=== PATIENT | female | born 1940 | race Caucasian/White ===

== ENCOUNTER → 2017-04-05 | Outpatient (CLI) | payer MEDICARE, OTHER ==
[2017-04-05 12:27] LABS: Bilirubin, Delta 0.1 mg/dL (0.0-0.2); Total Bilirubin 0.6 mg/dL (0.2-1.3); Total Protein 7.3 g/dL (6.3-8.2)
== END | disposition home or self-care (01) ==
LOC: LABWHC1 11:34
DX: K76.0 Fatty (change of) liver, not elsewhere classified (principal)
CPT/HCPCS: 36415; 80076; 82105

== ENCOUNTER 2018-01-06 09:01 | Day surgery (SDC) | payer MEDICARE, OTHER ==
[2018-01-01 15:28] VITALS: BMI 37.8
[~2018-01-06 09:01] MED LIST: LACTATED RINGERS 1,000 ML IV SCH; LIDOCAINE 1% 20 ML VIAL (10MG/ML) FOR IV START INTRADERMA PRN
[2018-01-06 10:11] VITALS: RESP 18; TEMP 97
[2018-01-06 10:16] LABS: Glucose,Whole Blood 125 mg/dL (75-99)
[2018-01-06] MEDS ORDERED: PROPOFOL 10 MG/ML 20 ML VIAL IV ONE (10:32)
[2018-01-06] MEDS ORDERED: MIDAZOLAM 2 MG/2 ML VIAL ONE (10:32)
--- NOTE | 2018-01-06 11:15 | P.PCN ---
Date of Procedure: 01/06/18 Procedure(s) Performed: Procedure: Esophagogastroduodenoscopy and biopsy. Preoperative diagnosis: Iron deficiency anemia. Postoperative diagnosis: 1. Small sliding hiatal hernia with no obvious esophagitis or complicated reflux disease. 2. Mild gastritis and duodenitis. 3. Multiple biopsies obtained from the duodenum, antrum and esophagus. 4. Diverticulosis of the colon with no evidence of acute diverticulitis, strictures , polyps or cancer. Preparation HalfLytely prep. Sedation was provided by anesthesia. Brief clinical history: The patient is a 77-year-old female who is scheduled for this evaluation for screening because of iron deficiency anemia to rule out GI sources of bleeding. The patient has no significant GI symptoms or overt bleeding. Procedure: With the patient on her left lateral decubitus position and after informed consent and adequate sedation, I passed the Olympus-GIF 160 video upper endoscope through the cricopharyngeus down the esophagus. GE junction was around 35 cm from the incisors and there was a small sliding hiatal hernia but no obvious esophagitis or complicated reflux disease. The endoscope was then passed into the stomach which was insufflated with air and inspected in detail including the retroflex view in the cardia. There was some mottling and erythema in the antrum but no ulcers or erosions. Pyloric channel did not show any ulcers. Duodenal bulb, post bulbar area and descending duodenum showed some mottling, erythema and friability but no ulcers, erosions or bleeding. I obtained biopsies from the duodenum, antrum and esophagus then the endoscope was withdrawn and I then proceeded with the colonoscopy. Perianal area did not show any fissures or fistulas. There were no masses felt on digital rectal examination. The Olympus CFQ 160L video colonoscope was then inserted in the rectum in the usual fashion and advanced to the cecum. There was diffuse diverticulosis with multiple diverticular orifices noted along the length of the bowel wall but otherwise, the mucosa appeared healthy. No polyps or tumors were seen or any angiodysplasia or other potential sources of bleeding. I retroflexed the endoscope in the rectum before the endoscope was withdrawn. The patient tolerated the procedure well. Plan: The patient was reassured. She will follow-up with you as planned. Consideration can be given for performing a capsule endoscopy if she continues to manifest iron deficiency anemia and a source of GI bleeding remains suspected.
[2018-01-06 11:57] VITALS: BP 127/61; PULSE 62
[2018-01-06 12:15] LABS: Glucose,Whole Blood 101 mg/dL (75-99)
== END 2018-01-06 12:15 | disposition home or self-care (01) ==
LOC: ORWHC2ENDO 09:01
DX: K29.50 Unspecified chronic gastritis without bleeding (principal); K20.0 Eosinophilic esophagitis; K21.0 Gastro-esophageal reflux disease with esophagitis; K29.80 Duodenitis without bleeding; K44.9 Diaphragmatic hernia without obstruction or gangrene; K57.30 Diverticulosis of large intestine without perforation or abscess without bleeding; D50.9 Iron deficiency anemia, unspecified; I10 Essential (primary) hypertension; E78.5 Hyperlipidemia, unspecified; E07.9 Disorder of thyroid, unspecified; E11.9 Type 2 diabetes mellitus without complications; J45.909 Unspecified asthma, uncomplicated; Z85.850 Personal history of malignant neoplasm of thyroid; Z79.84 Long term (current) use of oral hypoglycemic drugs; Z79.82 Long term (current) use of aspirin; Z79.890 Hormone replacement therapy; Z79.899 Other long term (current) drug therapy; Z88.8 Allergy status to other drugs, medicaments and biological substances
CPT/HCPCS: 88305; 45378; 43239; J2250; J2704

== ENCOUNTER 2018-04-13 08:23 | Emergency (ER) | payer MEDICARE, OTHER ==
[2018-04-13 08:31] VITALS: RESP 16
[2018-04-13] MEDS ORDERED: KETOROLAC 60 MG/2 ML VIAL IM STA (09:15)
[2018-04-13] MEDS ORDERED: ONDANSETRON 4 MG ODT STARTER PACK 2 TAB BTL PO STA (09:15)
[2018-04-13] MEDS ORDERED: ORPHENADRINE 30 MG/ML 2 ML VIAL IM STA (09:15)
[2018-04-13] MEDS ORDERED: MAG HYDROX/AL HYDROX/SIMETH 30 ML, HYOSCYAMINE ELIXIR 10 ML, CIMETIDINE HCL 300 MG, LID... PO STA ×4 (09:17)
[2018-04-13] MEDS ORDERED: MORPHINE SULFATE 4 MG/ML SYRINGE IM STA (09:19)
--- NOTE | 2018-04-13 09:20 | ED ---
Back Pain HPI - General Source: patient, RN notes reviewed, old records reviewed Limitations: no limitations <Twyla White - Last Filed: 04/13/18 10:19> <Andrew Duran - Last Filed: 04/13/18 10:46> - General Chief Complaint: Back Pain/Injury Stated Complaint: SCIATICA PAIN Time Seen by Provider: 04/13/18 08:36 - History of Present Illness Initial Comments: 77-year-old female presents return should she went of lower back pain, complains of sciatica. Patient reports that she was treated by her PCP with pain medication. She states that after taking pain medications or started to vomit. Patient relates that she was seen by urgent care. She states at that time they switch her tramadol. She did one day tramadol tolerated medication well but then started to vomit again. Patient reports left-sided today she's had episodes of dry heaving. She denies any abdominal pain. She denies any urinary symptoms or changes in her stool. Patient believes that the medication is causing her to be nauseated and vomit. Patient states that she was given a shot of steroids and muscle relaxers at the urgent care did have some relief as well. Patient poor she does have an MRI scheduled on April 25. Patient is planning on having physical therapy completed of her sciatic nerve as well. Patient ports that he meets on both legs. She denies any saddle anesthesia. ( Twyla White) - Related Data Home Medications Medication Instructions Recorded Confirmed Aspirin 81 mg PO DAILY 01/01/18 01/01/18 Atorvastatin [Lipitor] 10 mg PO HS 01/01/18 01/01/18 Calcium Carbonate [Calcium] 600 mg PO DAILY 01/01/18 01/01/18 Cholecalciferol [Vitamin D3] 1,000 unit PO DAILY 01/01/18 01/01/18 Levothyroxine Sodium [Synthroid] 75 mcg PO DAILY 01/01/18 01/01/18 Losartan Potassium [Cozaar] 50 mg PO HS 01/01/18 01/01/18 Potassium 99 mg PO DAILY 01/01/18 01/01/18 Ranitidine HCl [Zantac] 150 mg PO BID 01/01/18 01/01/18 amLODIPine [Norvasc] 5 mg PO DAILY 01/01/18 01/01/18 metFORMIN HCL [Glucophage] 1,000 mg PO QAM 01/01/18 01/01/18 metFORMIN HCL [Glucophage] 500 mg PO HS 01/01/18 01/01/18 Previous Rx's Medication Instructions Recorded Cyclobenzaprine [Flexeril] 10 mg PO TID #20 tab 04/13/18 Ondansetron Odt [Zofran Odt] 4 mg PO Q8HR PRN #12 tab 04/13/18 Allergies Allergy/AdvReac Type Severity Reaction Status Date / Time steroids AdvReac Nausea & Uncoded 04/13/18 08:31 Vomiting Review of Systems ROS Other: All systems not noted in ROS Statement are negative. <Twyla White - Last Filed: 04/13/18 10:19> ROS Other: All systems not noted in ROS Statement are negative. <Andrew Duran - Last Filed: 04/13/18 10:46> ROS Statement: Those systems with pertinent positive or pertinent negative responses have been documented in the HPI. Past Medical History Past Medical History: Asthma, Cancer, Diabetes Mellitus, GERD/Reflux, Hyperlipidemia, Hypertension, Thyroid Disorder Additional Past Medical History / Comment(s): iron deficient anemia, thyroid cancer 2007 History of Any Multi-Drug Resistant Organisms: None Reported Past Surgical History: Adenoidectomy, Hysterectomy, Orthopedic Surgery, Tonsillectomy Additional Past Surgical History / Comment(s): thyroidectomy, arthroscopy knee Past Anesthesia/Blood Transfusion Reactions: No Reported Reaction Smoking Status: Former smoker Past Alcohol Use History: None Reported Past Drug Use History: None Reported - Past Family History Brother(s) Family Medical History: Cancer Mother Family Medical History: Cancer Father Family Medical History: Cancer <Twyla White - Last Filed: 04/13/18 10:19> General Exam Limitations: no limitations General appearance: alert, in no apparent distress Head exam: Present: atraumatic, normocephalic, normal inspection Eye exam: Present: normal appearance, PERRL, EOMI. Absent: scleral icterus, conjunctival injection, periorbital swelling ENT exam: Present: normal exam, mucous membranes moist Neck exam: Present: normal inspection. Absent: tenderness, meningismus, lymphadenopathy Respiratory exam: Present: normal lung sounds bilaterally. Absent: respiratory distress, wheezes, rales, rhonchi, stridor Cardiovascular Exam: Present: regular rate, normal rhythm, normal heart sounds. Absent: systolic murmur, diastolic murmur, rubs, gallop, clicks GI/Abdominal exam: Present: soft, normal bowel sounds. Absent: distended, tenderness, guarding, rebound, rigid Back exam: Present: other (sciatic notch tenderness) Neurological exam: Present: alert, oriented X3, CN II-XII intact Psychiatric exam: Present: normal affect, normal mood Skin exam: Present: warm, dry, intact, normal color. Absent: rash <Twyla White - Last Filed: 04/13/18 10:19> <Andrew Duran - Last Filed: 04/13/18 10:46> - General Exam Comments Initial Comments: 77-year-old female. Alert and oriented. No significant distress. (Twyla White) Course <Twyla White - Last Filed: 04/13/18 10:19> <Andrew Duran - Last Filed: 04/13/18 10:46> Vital Signs 04/13/18 08:29 Temperature 97.4 F L Pulse Rate 75 Respiratory 16 Rate Blood Pressure 138/72 O2 Sat by Pulse 96 Oximetry - Reevaluation(s) Reevaluation #1: 04/13/18 10:46 PA supervision: I personally saw and examined the patient. I reviewed and agree with the PA findings including all diagnostic interpretations and treatment plans is written unless otherwise stated. The patient does demonstrate evidence of sciatica. She does have an appointment for an MRI soon scheduled through her doctor and possibly physical therapy afterwards. (Andrew Duran) Medical Decision Making - Radiology Data Radiology results: report reviewed <Twyla White - Last Filed: 04/13/18 10:19> <Andrew Duran - Last Filed: 04/13/18 10:46> - Medical Decision Making Patient is a 77-year-old female presents emergency department today with chief complaint of lower back pain and sciatica pain. She reports she was seen by PCP and was prescribed pain medication which then caused her to vomit. Patient states that she then started care was prescribed tramadol. She took tramadol 1 day without any symptoms. She reports that she had some pain in her back today and did have some episodes of vomiting last night into today. Patient was given by mouth Zofran, IM Toradol and Norflex and morphine. She does have improvement of her symptoms. X-rays reviewed and negative for any acute process at this time. (Twyla White) - Radiology Data No acute osseous lesion, mild degerative changes. (Twyla White) Disposition Is patient prescribed a controlled substance at d/c from ED?: No Time of Disposition: 10:20 <Twyla White - Last Filed: 04/13/18 10:19> <Andrew Duran - Last Filed: 04/13/18 10:46> Clinical Impression: Low back pain with sciatica, Nausea Disposition: HOME SELF-CARE Condition: Good Instructions: Sciatica (ED), Chronic Back Pain (ED) Additional Instructions: Patient advised to follow up with primary care physician. Return to the emergency department if any alarming signs or symptoms occur. Prescriptions: Cyclobenzaprine [Flexeril] 10 mg PO TID #20 tab Ondansetron Odt [Zofran Odt] 4 mg PO Q8HR PRN #12 tab PRN Reason: Nausea Referrals: Kleber Munoz DO [Primary Care Provider] - 1-2 days
--- NOTE | 2018-04-13 09:59 | XR ---
EXAMINATION TYPE: XR lumbar spine 2 or 3V , 3 VIEWS DATE OF EXAM ORDERED: 04/13/2018 HISTORY: Pain. COMPARISON: None. FINDINGS: There is a mild levoscoliosis present. Vertebral body height and alignment are maintained. There is no spondylolysis or spondylolisthesis. N o fractures are identified. There is mild hypertrophic spondylosis at T11-12 and L3-4. The pedicles a re intact. There is mild facet arthropathy in the lower lumbar facets. There is calcification of the [place] aorta. IMPRESSION: 1. NO ACUTE OSSEOUS LESION. 2. MILD DEGENERATIVE CHANGE.
[2018-04-13 10:55] VITALS: BP 136/66; PULSE 61; TEMP 97.8
== END 2018-04-13 10:53 | disposition home or self-care (01) ==
LOC: EC 08:23
DX: M54.40 Lumbago with sciatica, unspecified side (principal); R11.2 Nausea with vomiting, unspecified; E78.5 Hyperlipidemia, unspecified; I10 Essential (primary) hypertension; E11.9 Type 2 diabetes mellitus without complications; K21.9 Gastro-esophageal reflux disease without esophagitis; E89.0 Postprocedural hypothyroidism; Z87.891 Personal history of nicotine dependence; Z88.8 Allergy status to other drugs, medicaments and biological substances; Z79.82 Long term (current) use of aspirin; Z79.84 Long term (current) use of oral hypoglycemic drugs; Z79.899 Other long term (current) drug therapy; Z85.850 Personal history of malignant neoplasm of thyroid
CPT/HCPCS: 72100; 99284; 96372 ×3; J2270; J2360; J1885; S0119

== ENCOUNTER → 2018-04-25 | Outpatient (CLI) | payer MEDICARE, OTHER ==
--- NOTE | 2018-04-25 07:49 | MR ---
EXAMINATION TYPE: MR lumbar spine wo con DATE OF EXAM: 04/25/2018 COMPARISON: Lumbar spine x-ray April 13, 2018 HISTORY: Lumbar region radiculopathy per order. Sciatica pain for 4 to 5 months into right leg per pa tient. TECHNIQUE: Multiplanar, multisequence imaging of the lumbar spine is performed without IV contrast. FINDINGS: Sagittal images of the lumbar spine show vertebral body heights and alignment to appear sat isfactory. Multilevel disc desiccation is seen but disc space heights are fairly well-maintained. Sma ll posterior disc herniation is seen on sagittal images the T12-L1 disc space extending inferiorly. The conus medullaris is normal in position and signal ending inferior L1 level. There is large round area of low T1 and T2 signal involving the posterior aspect of the L5 vertebra with extension into th e right pedicle corresponding to prominent sclerotic area on plain films. Axial images at T12-L1 level shows right paracentral disc extrusion effacing anterior thecal sac ext ending 7 mm below disc space sagittal image 7. Bilateral neural foramina are patent. Axial images at L1-L2, L2-L3, and L3-L4 levels show mild to moderate facet degenerative changes with ligamentum flavum hypertrophy, there is some effacement the posterior lateral thecal sac at L2-L3 and L3-L4 levels. Bilateral neural foramina are patent. No suspicious disc herniations are seen. Axial images at the L4-L5 level show moderate to advanced facet degenerative changes and ligament fla vum hypertrophy effacing posterior lateral thecal sac. Bilateral neural foramina are patent. Axial images at the L5-S1 level show moderate to advanced facet degenerative changes bilaterally. Spi nal canal is preserved. Bilateral neural foramina are patent. There appears to be diminished T1 and T2 signal involving the left iliac bone at level of sacroiliac joint on the lowest axial images. IMPRESSION: Multilevel degenerative changes in the lumbar spine as detailed above, most prominent dis c herniation is T12-L1 level. Multilevel facet arthropathy most prominent in the lower lumbar spine. Nonspecific sclerotic lesion L5 vertebra and left iliac bone. Presence of low T1 and T2 signal is aga inst hemangioma. Presence of low T2 signal is against metastatic disease. Etiology uncertain, conside r Paget's disease and metabolic disorders. Other etiologies not excluded. Consider whole body bone sc an to further evaluate this area and for possible additional osseous areas.
== END | disposition home or self-care (01) ==
LOC: RADMRIMAIN 06:59
PROVIDERS: ATTEND Family Medicine
DX: M51.25 Other intervertebral disc displacement, thoracolumbar region (principal); M47.816 Spondylosis without myelopathy or radiculopathy, lumbar region; M46.96 Unspecified inflammatory spondylopathy, lumbar region
CPT/HCPCS: 72148

== ENCOUNTER → 2018-05-15 | Outpatient (CLI) | payer MEDICARE, OTHER ==
--- NOTE | 2018-05-15 14:58 | NM ---
EXAMINATION TYPE: NM bone scan whole body DATE OF EXAM: 05/15/2018 COMPARISON: Lumbar spine MRI dated 04/25/2018 HISTORY: Abnormal MRI, back pain Delayed whole-body scanning was performed following the injection of 24.9 mCi Tc 99m MDP. Images acq uired 3 hours post injection. FINDINGS: There are multiple areas of abnormal uptake within the skeleton to include the bilateral shoulders, t horacic and lumbar spine, left ilium, left and right proximal femurs, anterior iliac bones bilaterall y, left knee and leg. Focus of abnormal uptake present at what may be the posterior aspect of the pro ximal cervical spine. Abnormal rib uptake noted at the lower ribs on the right, likely 11th and 10th ribs. IMPRESSION: Findings suggest metastatic disease.
== END ==
LOC: RADNMMAIN 10:49
PROVIDERS: ATTEND Physical Medicine & Rehabilitation
DX: M54.5 Low back pain (principal)
CPT/HCPCS: 78306; A9503

== ENCOUNTER → 2018-05-21 | Outpatient (CLI) | payer MEDICARE, OTHER ==
--- NOTE | 2018-05-21 14:53 | CT ---
EXAMINATION TYPE: CT ChestAbdPelvis w con DATE OF EXAM: 05/21/2018 COMPARISON: Bone scan May 15, 2018 HISTORY: Disseminated malignant neoplasm per order. History of thyroid and bone cancer per patient. B ack and leg pain. CT DLP: 1632.8 mGycm. Automated Exposure Control for Dose Reduction was Utilized. CONTRAST: CT scan of the thorax, abdomen and pelvis is performed with IV Contrast, patient injected with 100 mL of Isovue 300. FINDINGS: LUNGS: There is suspicious left hilar masslike consolidation that is heterogeneously hyperdense filli ng and occluding the left lower lung bronchus and narrowing significant portion of lingular bronchus extending inferiorly to left hemidiaphragm, there is small adjacent left pleural fluid collection. Th ere is left-sided volume loss with mediastinal shift. Bilateral upper lung show mild to moderate santi pheral reticulation and fibrosis. Right lung is otherwise clear. There is left-sided volume loss with mediastinal shift MEDIASTINUM: There is enlarged heterogeneous hypodense subcarinal lymph node measuring 2.9 x 2.2 cm a xial image 28. No cardiomegaly or pericardial effusion is seen. Coronary artery calcification is p resent which is noted marker for coronary artery disease. OTHER: There is round 6 mm fat dense lesion near confluence of right-sided draining veins at level of proximal clavicle axial image 9 of uncertain etiology or significance. LIVER/GB: Gallbladder has distended margins. There is mild central and left-sided intrahepatic and ex trahepatic biliary dilatation without obstructing mass or calculus identified. There is suspicious il l-defined heterogeneous hypodense 3.1 cm right hepatic liver lesion axial image 64. Liver is overall heterogeneous without definitive additional lesion seen. PANCREAS: No significant abnormality is seen. SPLEEN: There is nonspecific 9 mm heterogeneous hypodense lesion in spleen on axial image 46. ADRENALS: No significant abnormality is seen. KIDNEYS: There are suspected to adjacent simple cyst laterally mid to lower pole level left kidney se rangel 7 image 36. There is more nonspecific hyperdense exophytic 1.4 cm lesion laterally lower pole le [place] right kidney axial image 38 in which solid lesion or neoplasm cannot be excluded.. BOWEL: Oral contrast extends to level of splenic flexure. There is no suspicious small or large bowel dilatation. Small hiatal hernia is present. Scattered colonic diverticula are seen. There is no conv incing evidence for acute diverticulitis. Slightly redundant sigmoid colon is noted. GENITAL ORGANS: Some scattered pelvic phleboliths are present. LYMPH NODES: No greater than 1cm abdominal or pelvic lymph nodes are appreciated. OSSEOUS STRUCTURES: Osseous metastatic disease is redemonstrated with prominent sclerotic focus right L5 level for reference coronal image 63, left inferior L3 level coronal image 63 sclerotic lesion le ft iliac bone coronal image 73. Smaller sclerotic focus right iliac bone coronal image 71. Large scle rotic focus left femoral neck coronal image 56. Smaller sclerotic focus right proximal femur intertro chanteric level laterally coronal image 56. Additional scattered sclerotic foci throughout the spine including dense sclerosis of the T5 vertebra for reference coronal image 80. OTHER: There is ventral wall narrowing the hernia containing fat overlying pelvis coronal image 21. IMPRESSION: Osseous metastatic disease redemonstrated which correlates with bone scan. Suspicious le ft hilar masslike consolidation occluding left lower lobe bronchus with left-sided volume loss. Abnor mal subcarinal lymph node. Suspicious hepatic metastatic lesion. Nonspecific splenic lesion. If tissu e diagnosis is necessary consider bronchoscopy for sampling or CT-guided liver biopsy of the inferior right hepatic lobe lesion. Nonspecific exophytic right renal lesion also noted.
== END | disposition home or self-care (01) ==
LOC: RADCTMAIN 11:41
PROVIDERS: ATTEND Internal Medicine Hematology & Oncology
DX: C79.51 Secondary malignant neoplasm of bone (principal); D73.89 Other diseases of spleen; N28.9 Disorder of kidney and ureter, unspecified; C80.0 Disseminated malignant neoplasm, unspecified
CPT/HCPCS: 82565; 84520; 71260; 74177; 36415; Q9967

== ENCOUNTER → 2018-05-24 | Outpatient (CLI) | payer MEDICARE, OTHER ==
--- NOTE | 2018-05-28 09:40 | PE ---
EXAMINATION TYPE: PET CT fusion skull to thigh DATE OF EXAM: 05/24/2018 CLINICAL HISTORY: History of thyroid cancer with solitary pulmonary nodule left lower lobe. TECHNIQUE: Following the intravenous administration of 13.54 mCi of F-18 FDG, whole body images are performed from the skull base to the midthigh. Images are reviewed on the computer in the coronal, axial, and sagittal planes. Reconstructed rotating images are created on independent workstation and reviewed on the computer. A non-contrast CT is performed in conjunction with the PET scan. COMPARISON: CT chest abdomen and pelvis May 21, 2018.. FINDINGS: SKULL BASE AND NECK: No suspicious hypermetabolic uptake is present. CHEST, MEDIASTINUM, AND HILAR REGION: There is background fairly moderate emphysematous change most p rominent in the upper lungs and apices. There is medial left infrahilar masslike consolidation occlud ing left lower lobe bronchus with extension all the way to hemidiaphragm. More central aspect near br onchial occlusion shows hypermetabolic uptake round shape measuring roughly 3.0 to 3.5 cm in diameter . Findings likely reflect obstructing endobronchial neoplasm with peripheral obstructing atelectasis making accurate measurement difficult. Max SUV near axial image 88 is 10.72. Left-sided volume loss i s noted with mediastinal shift. There is enlarged hypermetabolic subcarinal lymph node measuring 2.6 x 2.1 cm axial image 83 with max SUV of 9.23. I do suspect some hypermetabolic borderline 1 cm left hilar lymph nodes near axial imag e 81. No additional suspicious uptake in the mediastinum or right lung is present. ABDOMEN AND PELVIS: There is less well visualized 2.5 cm vague hypodense right hepatic lesion axial i mage 138, max SUV is 5.57. Metastatic disease is suspected. No suspicious hypermetabolic uptake is identified in spleen to correspond to subcentimeter hypodense lesion. No adrenal masses are evident. No suspicious hypermetabolic uptake is otherwise seen. Normal excretio n is noted. OSSEOUS STRUCTURES: Diffuse osseous metastatic disease is felt present as there is large sclerotic le alina left femoral neck with hypermetabolic uptake max SUV is 6.95. Additional large lesion left iliac bone near sacroiliac joint is noted for reference. There are several hypermetabolic sclerotic verteb ral lesions throughout the thoracolumbar spine, best visualized is diffusely involving T5 vertebra ax ial image 73. Max SUV is 4.69 at this level. There is round hypermetabolic lesion with sclerotic bord er left humeral head axial image 54. OTHER CT: Thyroid gland is not visualized and may be surgically absent or medically ablated. Correlat e clinically. There is moderate to severe coronary artery calcification which is noted marker for coronary artery d isease. Gallbladder has distended margins and is mildly dilated. No surrounding inflammatory change or fluid is noted. Common bile duct is prominent or mildly enlarged dom hepatis. No obstructing or intralumi nal calculi are clearly seen. Need to further investigate by ERCP should be based on clinical and lab correlation. A few simple appearing cysts scattered throughout left kidney are redemonstrated. Nonspecific slightl y hyperdense 1.5 cm exophytic lesion lower pole level right kidney axial image 142 is redemonstrated. Some contrast from recent CT remains within the colon. Scattered colonic diverticula are redemonstrat ed. Uterus is surgically absent or markedly atrophic. There is moderate to severe calcified plaque of the small caliber infrarenal abdominal aorta redemons trated. In the pelvis there is marked thinning or bulging of the intraperitoneal fat. Below this there is dagmar row neck hernia seen best near axial image 192 containing fat redemonstrated. There is multilevel spurring in the thoracolumbar spine. There is prominent facet arthropathy in the lower lumbar spine. IMPRESSION: Suspect occluding endobronchial neoplasm left hilar region occluding left lower lobe bron chus. Suspect left hilar and subcarinal adenopathy. Diffuse osseous metastatic disease redemonstrated . Probable hepatic metastatic lesion noted. Nonspecific right renal lesion redemonstrated. Bronchosco py with sampling can be performed for tissue confirmation.
== END | disposition home or self-care (01) ==
LOC: RADPETMAIN 11:59
PROVIDERS: ATTEND Internal Medicine Hematology & Oncology
DX: C79.51 Secondary malignant neoplasm of bone (principal); N28.9 Disorder of kidney and ureter, unspecified; R91.1 Solitary pulmonary nodule
CPT/HCPCS: 78815; A9552

== ENCOUNTER 2018-05-26 10:51 | Day surgery (SDC) | payer MEDICARE, OTHER ==
[2018-05-23 13:09] VITALS: BMI 35.2
[~2018-05-26 10:51] MED LIST changes: +ALBUTEROL NEB (CONC) 2.5 MG/0.5 ML INHALATION ONE; +DEXAMETHASONE SOD PHOSPHATE 10 MG/ML 1 ML VIAL IV ONE; +LACTATED RINGERS 1,000 ML IV ONE; +LIDOCAINE 2% (PF) 20 MG/ML 2 ML AMP INHALATION ONE; +LIDOCAINE VISCOUS 300 MG/15 ML CUP MUCOUS MEM ONE; +MIDAZOLAM 2 MG/2 ML VIAL IV PRN; +ONDANSETRON 4 MG/2 ML VIAL IVP ONE; +fentaNYL (PF) 50 MCG/ML 2 ML AMP IV PRN
[2018-05-26 11:20] VITALS: TEMP 97.4
[2018-05-26] MEDS ORDERED: LIDOCAINE 2% (PF) 20 MG/ML 10 ML AMP INHALATION ONE (11:30)
[2018-05-26 11:38] LABS: Glucose,Whole Blood 114 mg/dL (75-99)
[2018-05-26] MEDS ORDERED: ONDANSETRON 4 MG/2 ML VIAL IVP ONE (11:45)
[2018-05-26] MEDS ORDERED: KETAMINE 10 MG/ML 20 ML VIAL ONE (12:09)
[2018-05-26] MEDS ORDERED: PROPOFOL 10 MG/ML 20 ML VIAL IV ONE (12:09)
[2018-05-26] MEDS ORDERED: MIDAZOLAM 2 MG/2 ML VIAL ONE (12:09)
[2018-05-26] MEDS ORDERED: GLYCOPYRROLATE 0.2 MG/ML 2 ML VIAL ONE (12:09)
[2018-05-26] MEDS ORDERED: LIDOCAINE 2% INJ 20 MG/ML INTRATRACH ONE (12:18)
[2018-05-26] MEDS ORDERED: EPINEPHrine 10 ML SYRINGE (0.1 MG/ML) MISCELLANE ONE (12:20)
--- NOTE | 2018-05-26 12:42 | P.PCN ---
Date of Procedure: 05/26/18 Preoperative Diagnosis: Left lower lobe atelectasis Postoperative Diagnosis: 1. Left lower lobe bronchus obstruction, endobronchial and extrinsic compression 2. Anatomic distortion of the secondary charu the left upper and left lower lobe 3. 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 The patient was brought into the endoscopy suite and a consent was obtained. The procedure explained to her again at length. After achieving adequate sedation, the flexible bronchoscope was inserted through the right nostril was advanced Doppler airway. Examination of the posterior oropharynx, larynx, epiglottis and vocal cord was all within normal limits. A total of 2 mL of 1% lidocaine was applied to the vocal cords and following that the bronchoscope was advanced into the upper trachea. Examination of the trachea was completely within normal limits. Charu was sharp in the midline. Examination of the right side included the right mainstem bronchus, right upper lobe bronchus, bronchus intermedius, right middle lobe and right lower lobe bronchus, all of these it was repeated and within normal limits. The bronchoscope was then moved to the left. Left mainstem bronchus was patent. Immediately the secondary charu the left upper lobe bronchus and the left lower lobe bronchus was identified. This charu was anatomically distorted, irregular, friable with obvious vascular structures infiltrating the mucosal surface. The left lower lobe bronchus was completely obstructed. There was some minimal amount of bloody secretions covering the orifice of the left lower lobe bronchus that was extrinsically compressed and there was probably some endobronchial tumor within the airway. Unable to pass the bronchoscope into the left lower lobe. The bronchoscope was then moved to the left upper lobe and endobronchial tumor was visualized invading the proximal segment of the left upper lobe. At this point a total of 2 mL of epinephrine 1 1000 was applied to the area involving the abnormal findings in the left lung. Following that, a forceps was utilized to do several endobronchial biopsies. This was difficult to obtain knowing that the patient had some endobronchial bleeding at the site of the biopsies and this was attributed to the vascular nature of the endobronchial tumor. The bloody secretions were suctioned out. Endobronchial washings of the left lower lobe was done with a total of 80 mL of fluid was infused and around 10-15 mL of bloody aspirate was obtained. Following that, the bronchial brushings of the secondary charu left lower lobe and the left upper lobe was done using an endobronchial brush. At the end of the procedure, all of the bloody secretions were suctioned out and the patient remained hemodynamically stable maintaining her pulse ox above 90% throughout the procedure. Therapeutic airway suctioning was done a bronchus was removed and the patient was chest to recovery in stable condition. The patient will be monitored in recovery for another 1-2 hours and the patient will be discharged home once cleared by anesthesia. Expect coughing some bloody secretions related to the procedure.
[2018-05-26] MEDS ORDERED: fentaNYL (PF) 50 MCG/ML 2 ML AMP IV ONE (13:18)
[2018-05-26 13:36] VITALS: BP 131/82; PULSE 71; RESP 18
== END 2018-05-26 14:15 | disposition home or self-care (01) ==
LOC: ORWHC2ENDO 10:51
PROVIDERS: ATTEND Internal Medicine Critical Care Medicine
DX: C34.32 Malignant neoplasm of lower lobe, left bronchus or lung (principal); J98.09 Other diseases of bronchus, not elsewhere classified; E78.00 Pure hypercholesterolemia, unspecified; I10 Essential (primary) hypertension; E11.9 Type 2 diabetes mellitus without complications; Z79.84 Long term (current) use of oral hypoglycemic drugs; E78.5 Hyperlipidemia, unspecified; Z87.891 Personal history of nicotine dependence; Z85.850 Personal history of malignant neoplasm of thyroid; Z79.890 Hormone replacement therapy; Z79.891 Long term (current) use of opiate analgesic; Z79.899 Other long term (current) drug therapy
CPT/HCPCS: 94640; 88104; 88108; 88305; 88342; 88341; 31625; 31623; J2001 ×2; J2250; J2405; J0171; J3010; J2704; 31624

== ENCOUNTER 2018-06-27 08:05 | Day surgery (SDC) | payer MEDICARE, OTHER ==
[2018-06-25 08:49] VITALS: BMI 33.7
[~2018-06-27 08:05] MED LIST changes: -ALBUTEROL NEB (CONC) 2.5 MG/0.5 ML INHALATION ONE; -LACTATED RINGERS 1,000 ML IV ONE; -LIDOCAINE 2% (PF) 20 MG/ML 2 ML AMP INHALATION ONE; -LIDOCAINE VISCOUS 300 MG/15 ML CUP MUCOUS MEM ONE; +MIDAZOLAM (PF) 2 MG/2 ML VIAL IV PRN; -MIDAZOLAM 2 MG/2 ML VIAL IV PRN; +Pre Op ABX Message 1 EACH MISC MISCELLANE ONE
[2018-06-27 08:59] LABS: Glucose,Whole Blood 116 mg/dL (75-99)
[2018-06-27 09:00] VITALS: RESP 16
--- NOTE | 2018-06-27 09:20 | P.GSHP ---
History of Present Illness H&P Date: 06/27/18 Chief Complaint: Lung cancer Patient here today for Port-A-Cath placement. Patient with recent diagnosis of lung cancer. Port being utilized on Saturday. Poor IV access. Past Medical History Past Medical History: Asthma, Cancer, Diabetes Mellitus, GERD/Reflux, Hyperlipidemia, Hypertension, Skin Disorder, Thyroid Disorder Additional Past Medical History / Comment(s): IRON DEFICIENCY ANEMIA (HX OF IRON TRANSFUSION), HX OF BLEEDING ULER (30 YRS AGO)., HX OF FATTY LIVER.THYROID CANCER 2000 WITH SURGERY & IODINE., bone and lung cancer., STATES BACK PAIN AND PAIN IN HER LEGS., YEAST INFECTION UNDER BREAST. currently radiation for cancer left femur and vertebra History of Any Multi-Drug Resistant Organisms: None Reported Past Surgical History: Adenoidectomy, Section, Hysterectomy, Orthopedic Surgery, Tonsillectomy Additional Past Surgical History / Comment(s): thyroidectomy, arthroscopy left knee, colonoscopy, egd. Past Anesthesia/Blood Transfusion Reactions: Motion Sickness Smoking Status: Former smoker - Past Family History Brother(s) Family Medical History: Cancer Additional Family Medical History / Comment(s): multiple myeloma Mother Family Medical History: Cancer Additional Family Medical History / Comment(s): malignant brain tumor Father Family Medical History: Cancer Additional Family Medical History / Comment(s): lung cancer Medications and Allergies Home Medications Medication Instructions Recorded Confirmed Type Atorvastatin [Lipitor] 10 mg PO HS 01/01/18 06/27/18 History Levothyroxine Sodium [Synthroid] 75 mcg PO DAILY 01/01/18 06/27/18 History Losartan Potassium [Cozaar] 50 mg PO DAILY 01/01/18 06/27/18 History amLODIPine [Norvasc] 5 mg PO DAILY 01/01/18 06/27/18 History metFORMIN HCL [Glucophage] 1,000 mg PO AC-BRKFST 01/01/18 06/27/18 History metFORMIN HCL [Glucophage] 500 mg PO AC-SUPPER 01/01/18 06/27/18 History Albuterol Inhaler [Ventolin Hfa 1 - 2 puff INHALATION Q6HR PRN 05/23/18 History Inhaler] DULoxetine HCL [Cymbalta] 30 mg PO DAILY 06/11/18 06/27/18 History Dronabinol 5 mg PO DAILY 06/11/18 06/25/18 History HYDROcodone/APAP 5-325MG [[place] 1 tab PO Q6HR PRN 06/11/18 06/27/18 History 5-325] Ondansetron [Zofran ODT] 4 mg PO Q8H PRN 06/11/18 06/27/18 History traMADol HCL [Ultram] 50 mg PO Q6HR PRN 06/11/18 06/27/18 History Baclofen [Lioresal] 5 mg PO TID #60 tab 06/13/18 06/27/18 Rx Metoclopramide [Reglan] 5 mg PO AC-TID PRN #30 tab 06/13/18 06/27/18 Rx Naproxen [Naprosyn] 250 mg PO TID #60 tab 06/13/18 06/27/18 Rx Ranitidine HCl [Zantac] 150 mg PO BID #60 tablet 06/13/18 06/27/18 Rx Folic Acid 0.4 mg PO DAILY 06/25/18 06/27/18 History Scopolamine 1.5MG/72Hr Patch 1 patch TRANSDERM Q72H 06/27/18 06/27/18 History [TransDerm Scop] Allergies Allergy/AdvReac Type Severity Reaction Status Date / Time opioids Allergy Nausea, Uncoded 06/27/18 08:20 shaky steroids AdvReac Nausea & Uncoded 06/27/18 08:20 Vomiting Surgical - Exam Vital Signs Temp Pulse Resp BP Pulse Ox 97.7 F 87 16 136/61 95 06/27/18 08:32 06/27/18 08:32 06/27/18 08:32 06/27/18 08:32 06/27/18 08:32 Physical exam: General: Well-developed, well-nourished HEENT: Normocephalic, sclerae nonicteric Abdomen: Nontender, nondistended Extremities: No edema Neuro: Alert and oriented Results - Labs Abnormal Lab Results - Last 24 Hours (Table) 06/27/18 Range/Units 08:56 POC Glucose (mg/dL) 116 H (75-99) mg/dL Assessment and Plan (1) Adenocarcinoma of lung, stage 4 Narrative/Plan: Will proceed with Port-A-Cath placement at this time Risks of bleeding, infection, DVT, pneumothorax, catheter malfunction, anesthesia related complications were discussed. The patient understands and wishes to proceed. Current Visit: No Status: Acute Code(s): C34.90 - MALIGNANT NEOPLASM OF UNSP PART OF UNSP BRONCHUS OR LUNG SNOMED Code(s): 647184531
[2018-06-27] MEDS ORDERED: fentaNYL (PF) 50 MCG/ML 2 ML AMP ONE (09:40)
[2018-06-27] MEDS ORDERED: MIDAZOLAM 2 MG/2 ML VIAL ONE (09:40)
[2018-06-27] MEDS ORDERED: PROPOFOL 10 MG/ML 20 ML VIAL IV ONE (09:40)
[2018-06-27] MEDS ORDERED: KETAMINE 10 MG/ML 20 ML VIAL ONE (09:40)
[2018-06-27] MEDS ORDERED: LIDOCAINE (PF) 10 MG/ML 2 ML VIAL SQ ONE ×2 (09:44→10:04)
[2018-06-27] MEDS ORDERED: SODIUM CHLORIDE 0.9% 50 ML with ceFAZolin 2,000 MG IV ONE ×2 (10:00)
[2018-06-27] MEDS ORDERED: HEPARIN SODIUM,PORCINE 100 UNIT/ML 5 ML VIAL IV ONE ×2 (10:10)
[2018-06-27 10:44] VITALS: TEMP 97.8
--- NOTE | 2018-06-27 10:55 | FL ---
Fluoroscopy HISTORY: Port-A-Cath placement 38 seconds fluoroscopy time supplied to the referring clinician. 1 intraoperative C-arm images docum ent the procedure. See dictated report from general surgery.
[2018-06-27] MEDS ORDERED: traMADol 50 MG TAB PO PRN (10:56)
[2018-06-27] MEDS ORDERED: ONDANSETRON 4 MG/2 ML VIAL IVP PRN (10:56)
[2018-06-27] MEDS ORDERED: NALOXONE 0.4 MG/ML 1 ML VIAL IV PRN (10:56)
--- NOTE | 2018-06-27 10:58 | P.OP ---
Date of Procedure: 06/27/18 Procedure(s) Performed: PREOPERATIVE DIAGNOSIS: Lung cancer POSTOPERATIVE DIAGNOSIS: Same PROCEDURE: Port-A-Cath placement SURGEON: Mirela EBL: Minimal ANESTHESIA: Sedation COMPLICATIONS: None OPERATIVE PROCEDURE: Patient was brought and placed on the operative table in the supine position. The patient was sedated per anesthesia that time. The chest and neck were prepped and draped in usual sterile fashion. The ultrasound probe was used to identify the location of the right internal jugular vein. The skin was localized with lidocaine. The Seldinger needle was advanced into the IJ under ultrasound guidance. The wire was advanced through the needle under fluoroscopic guidance into the superior vena cava. A port pocket was created in the right infraclavicular location. The catheter was tunneled from the wire entrance site to the port pocket. The port was then connected to the catheter. The dilator introducer was threaded over the guidewire. The guidewire and dilator were then removed. The catheter was advanced through the introducer and introducer was then removed. The tip was seen to be in the right atrial junction. Port was flushed with both saline and a Hep-Lock solution. There was good flow both in and out of the port. The port was sutured in underlying tissues using 3-0 silk sutures. The subcutaneous tissues were reapproximated using 3-0 Vicryl sutures and the skin at both locations using 4-0 Monocryl sutures. Skin glue and sterile dressings then applied. DISPOSITION: Stable to recovery room
--- NOTE | 2018-06-27 11:40 | XR ---
EXAMINATION TYPE: XR chest 1V confirm line [facility] DATE OF EXAM: 06/27/2018 COMPARISON: Prior chest x-rays not available, comparison to prior PET/CT 05/24/2018 HISTORY: Status post Port-A-Cath placement TECHNIQUE: Single frontal view of the chest is obtained. FINDINGS: Right-sided Port-A-Cath is present, there is a right jugular approach, distal tip the cath eter is at the level of the cavoatrial junction. No evident pneumothorax or right pleural effusion. T here is retrocardiac density present which obscures the left hemidiaphragm. IMPRESSION: No evident complication status post central venous catheter placement..
[2018-06-27 11:43] VITALS: BP 139/81; PULSE 78
[2018-06-27 11:49] LABS: Glucose,Whole Blood 125 mg/dL (75-99)
== END 2018-06-27 12:02 | disposition home or self-care (01) ==
LOC: OR 08:05
PROVIDERS: ATTEND Surgery
DX: C34.32 Malignant neoplasm of lower lobe, left bronchus or lung (principal); C79.51 Secondary malignant neoplasm of bone; C78.7 Secondary malignant neoplasm of liver and intrahepatic bile duct; D72.829 Elevated white blood cell count, unspecified; E11.9 Type 2 diabetes mellitus without complications; E89.0 Postprocedural hypothyroidism; E78.5 Hyperlipidemia, unspecified; J45.909 Unspecified asthma, uncomplicated; I10 Essential (primary) hypertension; K21.9 Gastro-esophageal reflux disease without esophagitis; D50.9 Iron deficiency anemia, unspecified; F41.9 Anxiety disorder, unspecified; Z79.84 Long term (current) use of oral hypoglycemic drugs; Z79.890 Hormone replacement therapy; Z79.1 Long term (current) use of non-steroidal anti-inflammatories (NSAID); Z79.899 Other long term (current) drug therapy; Z92.3 Personal history of irradiation; Z85.850 Personal history of malignant neoplasm of thyroid; Z87.891 Personal history of nicotine dependence; Z90.710 Acquired absence of both cervix and uterus; Z88.5 Allergy status to narcotic agent; Z88.8 Allergy status to other drugs, medicaments and biological substances
CPT/HCPCS: 36561; 77001; C1788; J2250; J2001; J1642; J1100; J2405; J0690; J3010; J2704

== ENCOUNTER 2018-07-07 10:50 | Inpatient (IN) | payer MEDICARE, OTHER ==
[2018-07-07] MEDS ORDERED: ONDANSETRON 4 MG/2 ML VIAL IVP STA (11:05)
[2018-07-07] MEDS ORDERED: SODIUM CHLORIDE 0.9% 1,000 ML IV STA (11:05)
--- NOTE | 2018-07-07 11:33 | ED ---
General Adult HPI - General Chief complaint: Nausea/Vomiting/Diarrhea Stated complaint: Vomiting-Ca Pt Source: patient Mode of arrival: ambulatory Limitations: no limitations - History of Present Illness Initial comments: Dictation was produced using [employer] dictation software. please excuse any grammatical, word or spelling errors. Chief Complaint: 77-year-old female with past medical history of lung cancer, diabetes, dyslipidemia, thyroid disease presents with nausea. History of Present Illness: This 77-year-old female presents with 7 day history of nausea and vomiting. Patient just started chemotherapy 7 days ago. Since her oncologist is Dr. Justice. Patient just had her first chemotherapy infusion 7 days ago. Patient states that since infusion she's been having severe nausea and vomiting. Patient decided come in today because her symptoms have been slightly worsening. Patient unable to tolerate any by mouth. Patient denies any pain complaints. Denies any fever, chills or night sweats. The ROS documented in this emergency department record has been reviewed and confirmed by me. Those systems with pertinent positive or negative responses have been documented in the HPI. All other systems are other negative and/or noncontributory. - Related Data Home Medications Medication Instructions Recorded Confirmed Atorvastatin [Lipitor] 10 mg PO HS 01/01/18 07/07/18 Levothyroxine Sodium [Synthroid] 75 mcg PO DAILY 01/01/18 07/07/18 Losartan Potassium [Cozaar] 50 mg PO DAILY 01/01/18 07/07/18 amLODIPine [Norvasc] 5 mg PO DAILY 01/01/18 07/07/18 metFORMIN HCL [Glucophage] 1,000 mg PO AC-BRKFST 01/01/18 07/07/18 metFORMIN HCL [Glucophage] 500 mg PO AC-SUPPER 01/01/18 07/07/18 Albuterol Inhaler [Ventolin Hfa 1 - 2 puff INHALATION Q6HR PRN 05/23/18 07/07/18 Inhaler] DULoxetine HCL [Cymbalta] 30 mg PO DAILY 06/11/18 07/07/18 Dronabinol 5 mg PO DAILY 06/11/18 07/07/18 HYDROcodone/APAP 5-325MG [[place] 1 tab PO Q6HR PRN 06/11/18 07/07/18 5-325] Ondansetron [Zofran ODT] 4 mg PO Q8H PRN 06/11/18 07/07/18 traMADol HCL [Ultram] 50 mg PO Q6HR PRN 06/11/18 07/07/18 Scopolamine 1.5MG/72Hr Patch 1 patch TRANSDERM Q72H 06/27/18 07/07/18 [TransDerm Scop] Acetaminophen/Diphenhydramine 2 tab PO HS 07/07/18 07/07/18 [Tylenol PM 500-25mg] Folic Acid 0.4 mg PO DAILY 07/07/18 07/07/18 Previous Rx's Medication Instructions Recorded Baclofen [Lioresal] 5 mg PO TID #60 tab 06/13/18 Metoclopramide [Reglan] 5 mg PO AC-TID PRN #30 tab 06/13/18 Naproxen [Naprosyn] 250 mg PO TID #60 tab 06/13/18 Ranitidine HCl [Zantac] 150 mg PO BID #60 tablet 06/13/18 Allergies Allergy/AdvReac Type Severity Reaction Status Date / Time opioids Allergy Nausea, Uncoded 07/07/18 11:03 shaky steroids AdvReac Nausea & Uncoded 07/07/18 11:03 Vomiting Review of Systems ROS Statement: Those systems with pertinent positive or pertinent negative responses have been documented in the HPI. ROS Other: All systems not noted in ROS Statement are negative. Past Medical History Past Medical History: Asthma, Cancer, Diabetes Mellitus, GERD/Reflux, Hyperlipidemia, Hypertension, Skin Disorder, Thyroid Disorder Additional Past Medical History / Comment(s): IRON DEFICIENCY ANEMIA (HX OF IRON TRANSFUSION), HX OF BLEEDING ULER (30 YRS AGO)., HX OF FATTY LIVER.THYROID CANCER 2000 WITH SURGERY & IODINE., bone and lung cancer., STATES BACK PAIN AND PAIN IN HER LEGS., YEAST INFECTION UNDER BREAST. currently radiation for cancer left femur and vertebra History of Any Multi-Drug Resistant Organisms: None Reported Past Surgical History: Adenoidectomy, Section, Hysterectomy, Orthopedic Surgery, Tonsillectomy Additional Past Surgical History / Comment(s): thyroidectomy, arthroscopy left knee, colonoscopy, egd. Past Anesthesia/Blood Transfusion Reactions: Motion Sickness Past Psychological History: Anxiety Smoking Status: Former smoker Past Alcohol Use History: None Reported Past Drug Use History: None Reported - Past Family History Brother(s) Family Medical History: Cancer Additional Family Medical History / Comment(s): multiple myeloma Mother Family Medical History: Cancer Additional Family Medical History / Comment(s): malignant brain tumor Father Family Medical History: Cancer Additional Family Medical History / Comment(s): lung cancer General Exam - General Exam Comments Initial Comments: PHYSICAL EXAM: General Impression: Alert and oriented x3, not in acute distress HEENT: Normocephalic atraumatic, extra-ocular movements intact, pupils equal and reactive to light bilaterally, dry mucous membranes Cardiovascular: Heart regular rate and rhythm, S1&S2 audible, no murmurs, rubs or gallops Chest: Lungs clear to auscultation bilaterally, no rhonchi, no wheeze, no rales , Mediport in the right chest wall region Abdomen: Bowel sounds present, abdomen soft, non-tender, non-distended, no organomegaly Musculoskeletal: Pulses present and equal in all extremities, no peripheral edema Motor: Power 5/5 bilaterally, no focal deficits noted Neurological: CN II-XII grossly intact, no focal motor or sensory deficits noted Skin: Intact with no visualized rashes Psych: Normal affect and mood Limitations: no limitations Course Vital Signs 07/07/18 11:01 Temperature 97.4 F L Pulse Rate 94 Respiratory 20 Rate Blood Pressure 92/56 O2 Sat by Pulse 95 Oximetry Medical Decision Making - Medical Decision Making ED course: Serial female presents with chief complaint of nausea and vomiting 7 days status post initial chemotherapy infusion. Vital signs upon arrival shows blood pressure 92/56. Rest of vital signs within acceptable limits. Patient appears dehydrated. Clinical presentation is consistent with her chemotherapy induced nausea and vomiting. EKGs benign.Laboratory evaluation obtained. Leukopenia of 0.2, hemoglobin 9.1, platelets of 82, sodium of 122, gap acidosis, normal lactic acid level. Calcium of 5.3, magnesium 1.1. With hypoalbuminemia. Patient does have a calcium of 5.3 which is critical low however when corrected for albumin patient has calcium of 6.3. Pending ionized calcium level. Patient is afebrile. She does appear to be neutropenic. No antibiotics indicated at this time. This is likely all secondary to chemotherapy. Patient given intravenous fluids, electrolyte replacement intravenously and anti-nausea medication. Patient to be admitted with oncology consultation. EKG Interpretation: A 12 lead EKG was obtained. It was interpreted by myself and attending physician. There is a P wave before every QRS complex. Rate is 94. Rhythm is sinus rhythm, ND interval 132, QRS 88, QTc 460. QT is not prolonged. No ST segment depression or elevation. There appears to be various P wave morphology shows intermittent ectopic rhythm - Lab Data Result diagrams: 07/07/18 11:37 07/07/18 11:37 Lab Results 07/07/18 07/07/18 07/07/18 Range/Units 11:37 11:37 11:37 WBC 0.2 L* (3.8-10.6) k/uL RBC 3.08 L (3.80-5.40) m/uL Hgb 9.1 L D (11.4-16.0) gm/dL Hct 25.7 L (34.0-46.0) % MCV 83.5 (80.0-100.0) fL MCH 29.5 (25.0-35.0) pg MCHC 35.4 (31.0-37.0) g/dL RDW 14.8 (11.5-15.5) % Plt Count 82 L D (150-450) k/uL Differential Comment Manual Slide Review Performed Poikilocytosis (manual Present Sodium 122 L (137-145) mmol/L Potassium 4.0 (3.5-5.1) mmol/L Chloride 87 L (98-107) mmol/L Carbon Dioxide 19 L (22-30) mmol/L Anion Gap 16 mmol/L BUN 19 H (7-17) mg/dL Creatinine 0.68 (0.52-1.04) mg/dL Est GFR (CKD-EPI)AfAm >90 (>60 ml/min/1.73 sqM) Est GFR (CKD-EPI)NonAf 85 (>60 ml/min/1.73 sqM) Glucose 101 H (74-99) mg/dL Plasma Lactic Acid Chuck 1.4 (0.7-2.0) mmol/L Calcium 5.3 L* (8.4-10.2) mg/dL Magnesium 1.1 L (1.6-2.3) mg/dL Total Bilirubin 3.8 H (0.2-1.3) mg/dL AST 40 H (14-36) U/L ALT 42 (9-52) U/L Alkaline Phosphatase 352 H (38-126) U/L Creatine Kinase 68 (30-135) U/L Total Protein 4.8 L (6.3-8.2) g/dL Albumin 2.3 L (3.5-5.0) g/dL Disposition Clinical Impression: Electrolyte abnormality, Nausea & vomiting Disposition: ADMITTED IP TO THIS HOSP Condition: Fair Referrals: Kleber Munoz DO [Primary Care Provider] - 1-2 days Decision Time: 13:02
[2018-07-07 12:07] LABS: ALT 42 U/L (9-52); AST 40 U/L (14-36); Albumin 2.3 g/dL (3.5-5.0); Alkaline Phosphatase 352 U/L (38-126); Anion Gap 16 mmol/L; Blood Urea Nitrogen 19 mg/dL (7-17); Carbon Dioxide 19 mmol/L (22-30); Chloride 87 mmol/L (98-107); Creatine Kinase 68 U/L (30-135); Glucose 101 mg/dL (74-99); Magnesium 1.1 mg/dL (1.6-2.3); Sodium 122 mmol/L (137-145); Total Bilirubin 3.8 mg/dL (0.2-1.3); Total Protein 4.8 g/dL (6.3-8.2)
[2018-07-07 12:13] LABS: HCT 25.7 % (34.0-46.0); MCH 29.5 pg (25.0-35.0); MCHC 35.4 g/dL (31.0-37.0); MCV 83.5 fL (80.0-100.0); Mean Platelet Volume 6.8; RBC 3.08 m/uL (3.80-5.40); RDW 14.8 % (11.5-15.5)
[2018-07-07 12:19] LABS: Calcium 5.3 mg/dL (8.4-10.2)
[2018-07-07 12:22] LABS: HGB 9.1 gm/dL (11.4-16.0); WBC 0.2 k/uL (3.8-10.6)
[2018-07-07 12:23] LABS: Platelet Count 82 k/uL (150-450)
[2018-07-07 12:44] LABS: Poikilocytosis (M) Present
[2018-07-07] MEDS ORDERED: CALCIUM GLUCONATE 1,000 MG in SODIUM CHLORIDE 0.9% 100 ML IVPB ONE ×2 (12:45→12:47)
[2018-07-07] MEDS ORDERED: MORPHINE SULFATE 4 MG/ML SYRINGE IV PRN (13:02)
[2018-07-07] MEDS ORDERED: ACETAMINOPHEN TAB 325 MG TAB PO PRN (13:02)
[2018-07-07] MEDS ORDERED: NALOXONE 0.4 MG/ML 1 ML VIAL IV PRN (13:02)
[2018-07-07] MEDS: ONDANSETRON 4 MG/2 ML VIAL IVP PRN ×2 (13:32→19:15)
[2018-07-07] MEDS: MAGNESIUM SULFATE-D5W PMX 1 GM in DEXTROSE/WATER 1 100ML.BAG IVPB SCH ×2 (15:22→16:47)
[2018-07-07] MEDS: SODIUM CHLORIDE 0.9% 1,000 ML IV SCH (15:23)
[2018-07-07] MEDS ORDERED: traMADol 50 MG TAB PO PRN (15:29)
[2018-07-07 17:06] LABS: Glucose,Whole Blood 110 mg/dL (75-99)
[2018-07-07] MEDS ORDERED: PANTOPRAZOLE 40 MG/10 ML VIAL IVP ONE (19:01)
[2018-07-07 20:15] LABS: Glucose,Whole Blood 109 mg/dL (75-99)
[2018-07-07] MEDS: METOCLOPRAMIDE 5 MG/ML 2 ML VIAL IVP SCH (21:50)
[2018-07-07] MEDS: ALPRAZolam 0.5 MG TAB PO PRN (22:23)
[2018-07-08] MEDS: SODIUM CHLORIDE 0.9% 1,000 ML IV SCH ×4 (00:05→15:14)
[2018-07-08] MEDS ORDERED: CALCIUM CHLORIDE 500 MG in SODIUM CHLORIDE 0.9% 50 ML IVPB ONE (06:00)
[2018-07-08] MEDS: METOCLOPRAMIDE 5 MG/ML 2 ML VIAL IVP SCH ×3 (06:24→20:38)
[2018-07-08 07:06] LABS: HCT 26.7 % (34.0-46.0); MCH 29.2 pg (25.0-35.0); MCHC 33.6 g/dL (31.0-37.0); MCV 86.8 fL (80.0-100.0); Mean Platelet Volume 6.5; RBC 3.07 m/uL (3.80-5.40)
[2018-07-08 07:08] LABS: Glucose,Whole Blood 124 mg/dL (75-99)
[2018-07-08 07:18] LABS: WBC 0.2 k/uL (3.8-10.6)
[2018-07-08 07:22] LABS: Anion Gap 15 mmol/L; Blood Urea Nitrogen 15 mg/dL (7-17); Carbon Dioxide 15 mmol/L (22-30); Chloride 95 mmol/L (98-107); Glucose 111 mg/dL (74-99); Magnesium 1.8 mg/dL (1.6-2.3); Potassium 3.9 mmol/L (3.5-5.1); Sodium 125 mmol/L (137-145)
--- NOTE | 2018-07-08 08:00 | HP ---
HISTORY AND PHYSICAL DATE OF ADMISSION: 07/07/2018 DATE OF SERVICE: 07/07/2018 PRESENTING COMPLAINT: Nausea, vomiting diarrhea. HISTORY OF PRESENTING COMPLAINT: This is a very pleasant 77-year-old patient of Dr. Munoz and oncologist, Dr. 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 Chronic stable medical conditions include diabetes, hyperlipidemia, hypertension, COPD, GERD, hypothyroid, peptic ulcer disease. The patient has stage IV lung cancer with metastatic disease to the left femur and lumbar region. The patient has been getting radiation treatment by Dr. Diego Calix. The patient was here at the end of May with uncontrolled pain and she did better with hydration. The patient got chemotherapy a week ago and since then, having nausea, vomiting, diarrhea, not able to keep anything down, became extremely exhausted, tired, brought by the to the ER. The patient was found to have severe electrolyte abnormality with sodium 122, calcium down to 2.9 ionized and also white count 0.2. There was no fever or chills. The patient is feeling totally rundown. Started on IV fluids. REVIEW OF SYSTEMS: CONSTITUTIONAL: Weak, tired. HEENT: None. RESPIRATORY: Some shortness of breath. CARDIOVASCULAR: None. GASTROINTESTINAL: As above. GENITOURINARY: None. MUSCULOSKELETAL: Pain in the joints. DERMATOLOGICAL: None. HEMATOLOGICAL: None. LYMPHATICS: None. PSYCHIATRY: Feeling a bit low. NEUROLOGICAL: None. PAST HISTORY: Diabetes, hyperlipidemia, hypertension, asthma, GERD, hypothyroid, peptic ulcer disease 30 years ago, fatty liver, iron deficiency anemia, thyroid cancer 2000, metastatic lung cancer. PAST SURGICAL HISTORY: Adenoidectomy, , hysterectomy, tonsillectomy, thyroidectomy, colonoscopy. SOCIAL HISTORY: Smoked a pack a day for 20 years, stopped in 1984. . FAMILY HISTORY: Multiple myeloma. HOME MEDICATIONS: Scopolamine patch 1.5 every 72 hours, Ultram 50 mg q.6h p.r.n., Glucophage 100 mg before supper and 1000 mg before breakfast, Norvasc 5 mg p.o. daily, Zantac 150 mg b.i.d., Zofran 4 mg q.8h p.r.n., naproxen 250 mg p.o. t.i.d., Reglan 5 mg a.c. t.i.d. p.r.n., Cozaar 50 mg p.o. daily, Synthroid 75 mcg a day, [place] 5 one tablet q.6h p.r.n., folic acid 0.4 mg p.o. daily, ( ) 5 mg p.o. daily, Cymbalta 30 mg p.o. daily, Baclofen 5 mg p.o. t.i.d., Lipitor 10 mg q.h.s., Ventolin HFA 1 or 2 puffs q.6 p.r.n., Tylenol p.m. q.h.s. ALLERGIES: To OPIATES AND STEROIDS, no true allergy. PHYSICAL EXAMINATION: VITAL SIGNS ON PRESENTATION: Temperature 97.4 pulse 94, respiration 20, blood pressure 92/56, pulse ox 95%. GENERAL APPEARANCE: Lying in bed, tired, exhausted appearing. EYES: Pupils equal. Conjunctivae pale. HEENT: External appearance of ears and nose is normal. Oral cavity dry. NECK: JVD not raised. Mass not palpable. Respiratory effort normal. LUNGS: Diminished breath sounds. CARDIOVASCULAR: First and second sounds normal. No edema. ABDOMEN: Soft, nontender. Liver and spleen not palpable. LYMPHATICS: No lymph nodes palpable in neck or axillae. PSYCHIATRY: Alert and oriented x3. Mood and affect anxious-appearing. NEUROLOGICAL: Pupils equal. Cranial nerves grossly intact. Power and sensation grossly intact. INVESTIGATIONS: Reviewed in the context of the clinical picture, white count 0.2, hemoglobin 9.1, platelets 82. Sodium 122, potassium 4, BUN 19, creatinine 0.68, plasma lactic acid was 1.4, calcium 5.3. Ionized calcium is 2.9, magnesium 1.1, albumin 2.3. ASSESSMENT: 1. Severe nausea, vomiting and diarrhea as a side effect of chemotherapy. 2. Pancytopenia with severe neutropenia as side effect of chemotherapy. 3. Hyponatremia with hypotension from poor oral intake. 4. Acute metabolic acidosis from volume loss. 5. Hypocalcemia with low ionized calcium. 6. Hypomagnesemia. 7. Hyperbilirubinemia. 8. Hypoalbuminemia as an acute phase reactant. 9. Stage IV lung cancer, metastatic disease to the femur and vertebral masses. 10.Diabetes mellitus type 2 on oral hypoglycemic. 11.Hyperlipidemia. 12.Essential hypertension. 13.Chronic obstructive pulmonary disease in an ex-smoker. 14.Gastroesophageal reflux disease. 15.Hypothyroid. 16.Fatty liver. PLAN: The patient told to avoid water. Will give normal saline. Give some salt tablets. Aggressive hydration. Will also give patient IV calcium supplements. Oncology was consulted for G-CSF administration. The patient currently does not have any infective symptoms. The patient at least needs 2 nights in the hospital as she is rather sick. Care was discussed with the patient's . Questions were answered. MMRONALDOL / CHRISN: [id number] /
[2018-07-08] MEDS: PANTOPRAZOLE 40 MG/10 ML VIAL IV SCH (08:03)
[2018-07-08] MEDS: ALPRAZolam 0.5 MG TAB PO PRN (08:10)
[2018-07-08] MEDS ORDERED: SODIUM CHLORIDE TAB 1 GM TAB PO SCH (09:00)
[2018-07-08 09:47] LABS: Poikilocytosis (M) Present
[2018-07-08 11:12] LABS: Glucose,Whole Blood 121 mg/dL (75-99)
--- NOTE | 2018-07-08 12:26 | P.CRDCN ---
History of Present Illness Consult date: 07/08/18 History of present illness: This is a 77-year-old female with history of hypertension hyperlipidemia COPD, GERD syndrome and also known for peptic ulcer disease. She was diagnosed to have stage IV lung cancer with metastatic disease to the left femur and lumbar region. Patient has been getting radiation treatment and also got chemotherapy about a week ago. Patient is now admitted to the hospital with nausea, vomiting , diarrhea, and also complaints of fatigue, exhaustion and tiredness. Patient was found to have severe Dr. Talley abnormalities. The sodium level of 122, calcium level of 2.9 and leukopenia and also thrombocytopenia. Patient also developed a bout of atrial fibrillation lasting for about 45 minutes with rapid ventricular response. We're asked to see the patient for management of atrial fibrillation. Patient is still unable to keep anything by mouth. Currently patient is in sinus rhythm. Patient was feeling palpitations when she was in atrial fibrillation. Denied any chest pain or undue shortness of breath. Patient is not a candidate for anticoagulation therapy, given her low platelet count. Given her age, sex and history of hypertension, ideally patient needed to be on anti-cognition therapy. At this point I'm going to start her on oral beta oswaldo if she can tolerate. If not, IV Lopressor 5 mg can be used on when necessary basis. If she develops persistent atrial fibrillation, patient may need IV Cardizem. I will also obtain echocardiogram. Review of Systems Not obtained Past Medical History Past Medical History: Asthma, Cancer, Diabetes Mellitus, GERD/Reflux, Hyperlipidemia, Hypertension, Skin Disorder, Thyroid Disorder Additional Past Medical History / Comment(s): LEFT SIDE LUNG ADENOCARCINOMA STAGE IV WITH WIDE SPREAD METASTATIC DISEASE, IRON DEFICIENCY ANEMIA (HX OF IRON TRANSFUSION), HX OF BLEEDING ULER (30 YRS AGO), NIDDM TYPE II, HX OF FATTY LIVER, THYROID CANCER 2000 WITH SURGERY & IODINE, BACK PAIN AND PAIN IN HER LEGS, UTI, YEAST INFECTION UNDER BREAST History of Any Multi-Drug Resistant Organisms: None Reported Past Surgical History: Adenoidectomy, Section, Hysterectomy, Orthopedic Surgery, Tonsillectomy Additional Past Surgical History / Comment(s): 05/26/18 port a cath insertion, thyroidectomy, arthroscopy left knee, colonoscopy, egd. Past Anesthesia/Blood Transfusion Reactions: Motion Sickness Smoking Status: Former smoker - Past Family History Brother(s) Family Medical History: Cancer Additional Family Medical History / Comment(s): multiple myeloma Mother Family Medical History: Cancer Additional Family Medical History / Comment(s): malignant brain tumor Father Family Medical History: Cancer Additional Family Medical History / Comment(s): lung cancer Medications and Allergies Home Medications Medication Instructions Recorded Confirmed Type Atorvastatin [Lipitor] 10 mg PO HS 01/01/18 07/07/18 History Levothyroxine Sodium [Synthroid] 75 mcg PO DAILY 01/01/18 07/07/18 History Losartan Potassium [Cozaar] 50 mg PO DAILY 01/01/18 07/07/18 History amLODIPine [Norvasc] 5 mg PO DAILY 01/01/18 07/07/18 History metFORMIN HCL [Glucophage] 1,000 mg PO AC-BRKFST 01/01/18 07/07/18 History metFORMIN HCL [Glucophage] 500 mg PO AC-SUPPER 01/01/18 07/07/18 History Albuterol Inhaler [Ventolin Hfa 1 - 2 puff INHALATION Q6HR PRN 05/23/18 History Inhaler] DULoxetine HCL [Cymbalta] 30 mg PO DAILY 06/11/18 07/07/18 History Dronabinol 5 mg PO DAILY 06/11/18 07/07/18 History HYDROcodone/APAP 5-325MG [[place] 1 tab PO Q6HR PRN 06/11/18 07/07/18 History 5-325] Ondansetron [Zofran ODT] 4 mg PO Q8H PRN 06/11/18 07/07/18 History traMADol HCL [Ultram] 50 mg PO Q6HR PRN 06/11/18 07/07/18 History Baclofen [Lioresal] 5 mg PO TID #60 tab 06/13/18 07/07/18 Rx Metoclopramide [Reglan] 5 mg PO AC-TID PRN #30 tab 06/13/18 07/07/18 Rx Naproxen [Naprosyn] 250 mg PO TID #60 tab 06/13/18 07/07/18 Rx Ranitidine HCl [Zantac] 150 mg PO BID #60 tablet 06/13/18 07/07/18 Rx Scopolamine 1.5MG/72Hr Patch 1 patch TRANSDERM Q72H 06/27/18 07/07/18 History [TransDerm Scop] Acetaminophen/Diphenhydramine 2 tab PO HS 07/07/18 07/07/18 History [Tylenol PM 500-25mg] Folic Acid 0.4 mg PO DAILY 07/07/18 07/07/18 History Allergies Allergy/AdvReac Type Severity Reaction Status Date / Time opioids Allergy Nausea, Uncoded 07/07/18 11:03 shaky steroids AdvReac Nausea & Uncoded 07/07/18 11:03 Vomiting Physical Exam Vitals: Vital Signs Temp Pulse Pulse Resp BP BP Pulse Ox 07/08/18 08:20 91 16 07/08/18 05:00 97.6 F 91 16 119/93 95 07/08/18 02:20 89 07/08/18 01:57 147 H 07/08/18 01:56 20 94 L 07/08/18 01:53 147 H 20 144/87 91 L 07/07/18 21:00 96.9 F L 90 17 105/58 94 L 07/07/18 16:35 97.8 F 86 18 108/64 94 L 07/07/18 16:11 98.7 F 88 18 119/61 95 07/07/18 16:00 88 20 111/62 92 L 07/07/18 15:30 84 21 113/64 93 L 07/07/18 14:30 20 121/71 93 L 07/07/18 14:00 18 107/61 95 07/07/18 13:30 82 18 110/68 91 L 07/07/18 13:00 88 18 101/58 92 L 07/07/18 12:30 79 18 102/60 95 Intake and Output 07/07/18 07/08/18 07/08/18 22:59 06:59 14:59 Intake Total 150 1125 Balance 150 1125 Intake: Intake, IV Titration 1125 Amount Sodium Chloride 0.9% 1, 1125 000 ml @ 125 mls/hr IV . Q8H [facility] Rx#:[id number] Oral 150 Other: Voiding Method Toilet Toilet Diaper Diaper Incontinent Incontinent # Voids 1 1 GENERAL EXAM: Patient is alert . Appears frail and weak HEENT: Normocephalic. Normal reaction of pupils, equal size, normal range of extraocular motion. No erythema or exudates in the throat. NECK: No masses, no nuchal rigidity. CHEST: No chest wall deformity. LUNGS: Equal air entry with no crackles or wheeze. HEART: S1 and S2 normal ABDOMEN: Soft SKIN: No rashes CENTRAL NERVOUS SYSTEM: No focal deficits. EXTREMITIES: No cyanosis, clubbing or edema. Results 07/08/18 06:30 07/08/18 06:30 Cardiac Enzymes 07/07/18 Range/Units 11:37 AST 40 H (14-36) U/L CBC 07/07/18 07/08/18 Range/Units 11:37 06:30 WBC 0.2 L* 0.2 L* (3.8-10.6) k/uL RBC 3.08 L 3.07 L (3.80-5.40) m/uL Hgb 9.1 L D 9.0 L (11.4-16.0) gm/dL Hct 25.7 L 26.7 L (34.0-46.0) % Plt Count 82 L D 39 L D (150-450) k/uL Comprehensive Metabolic Panel 07/07/18 07/08/18 Range/Units 11:37 06:30 Sodium 122 L 125 L (137-145) mmol/L Potassium 4.0 3.9 (3.5-5.1) mmol/L Chloride 87 L 95 L (98-107) mmol/L Carbon Dioxide 19 L 15 L (22-30) mmol/L BUN 19 H 15 (7-17) mg/dL Creatinine 0.68 0.58 (0.52-1.04) mg/dL Glucose 101 H 111 H (74-99) mg/dL Calcium 5.3 L* 5.0 L* (8.4-10.2) mg/dL AST 40 H (14-36) U/L ALT 42 (9-52) U/L Alkaline Phosphatase 352 H (38-126) U/L Total Protein 4.8 L (6.3-8.2) g/dL Albumin 2.3 L (3.5-5.0) g/dL Current Medications Generic Name Dose Route Start Last Admin Trade Name Freq PRN Reason Stop Dose Admin Acetaminophen 650 mg 07/07/18 13:02 07/07/18 13:37 Tylenol Tab PO 650 mg Q6HR PRN Administration Mild Pain or Fever > 100.5 Alprazolam 0.5 mg 07/07/18 21:22 07/08/18 08:10 Xanax PO 0.5 mg TID PRN Administration Anxiety Sodium Chloride 1,000 mls @ 125 mls/hr 07/07/18 23:45 07/08/18 08:04 Saline 0.9% IV 125 mls/hr .Q8H REZA Administration Metoclopramide HCl 10 mg 07/07/18 21:30 07/08/18 06:24 Reglan IVP 10 mg Q8H REZA Administration Naloxone HCl 0.2 mg 07/07/18 13:02 Narcan IV Q2M PRN Opioid Reversal Pantoprazole Sodium 40 mg 07/08/18 09:00 07/08/18 08:03 Protonix IV 40 mg DAILY REZA Administration Sodium Chloride 2 gm 07/08/18 09:00 07/08/18 08:04 Sodium Chloride Tab PO 2 gm TID REZA Administration Tramadol HCl 50 mg 07/07/18 15:29 07/07/18 16:00 Ultram PO 50 mg QID PRN Administration Moderate Pain Intake and Output 07/07/18 07/08/18 07/08/18 22:59 06:59 14:59 Intake Total 150 1125 Balance 150 1125 Intake: Intake, IV Titration 1125 Amount Sodium Chloride 0.9% 1, 1125 000 ml @ 125 mls/hr IV . Q8H [facility] Rx#:[id number] Oral 150 Other: Voiding Method Toilet Toilet Diaper Diaper Incontinent Incontinent # Voids 1 1 07/08/18 06:30 07/08/18 06:30 EKG Interpretations (text) Sinus rhythm with APCs Assessment and Plan (1) Paroxysmal atrial fibrillation Current Visit: Yes Status: Acute Code(s): I48.0 - PAROXYSMAL ATRIAL FIBRILLATION SNOMED Code(s): 932459814 (2) Electrolyte abnormality Current Visit: Yes Status: Acute Code(s): E87.8 - OTH DISORDERS OF ELECTROLYTE AND FLUID BALANCE, NEC SNOMED Code(s): 649135763 (3) Adenocarcinoma of lung, stage 4 Current Visit: No Status: Acute Code(s): C34.90 - MALIGNANT NEOPLASM OF UNSP PART OF UNSP BRONCHUS OR LUNG SNOMED Code(s): 326016892 (4) Hypertension Current Visit: Yes Status: Acute Code(s): I10 - ESSENTIAL (PRIMARY) HYPERTENSION SNOMED Code(s): 89282375 (5) Diabetes mellitus Current Visit: Yes Status: Acute Code(s): E11.9 - TYPE 2 DIABETES MELLITUS WITHOUT COMPLICATIONS SNOMED Code(s): 90136612 Plan: Patient is back in sinus rhythm. I'll start her small dose of oral beta oswaldo if she can tolerate. If not, Lopressor 5 g IV can be used on when necessary basis for paroxysmal atrial fibrillation. If she has persistent atypical fibrillation, IV Cardizem may be necessary. I will also get an echocardiogram
--- NOTE | 2018-07-08 13:26 | P.CONS ---
History of Present Illness - Reason for Consult Consult date: 07/08/18 Chemotherapy toxicity Requesting physician: Stan Mayo - Chief Complaint Nausea, vomiting, weakness - History of Present Illness Ms. Fraga is a very pleasant 77-year-old female with a history of recently found metastatic lung cancer, adenocarcinoma, with diffuse bone metastases and a single liver lesion as well as left femoral neck metastases, who is here for intractable nausea, vomiting, and generalized weakness and fatigue. She was initially diagnosed in May [address] of the chest abdomen and pelvis revealed left hilar masslike consolidation occluding the left lower lobe bronchus and they 2.9 cm subcarinal hypodense lesion as well as a 3.1 cm ill- defined liver lesion. She was symptomatic at that time with 40% weight loss and increasing shortness of breath which she attributed to anxiety. Bronchoscopy was done with biopsy that was positive for adenocarcinoma and PET scan confirmed diffuse bone metastases, solitary liver lesion, and left femoral neck metastatic site. She subsequently underwent palliative radiation to the femur and lumbar spine and subsequently was started on chemotherapy, receiving cycle 1 on 06/30/18. Unfortunately she has been having nausea with vomiting, and unable to keep anything down, and significant weakness for the past few days. She ended up in the ER where she was found to be hyponatremic, hypomagnesemic, hypocalcemic, and with pancytopenia including a WBC count of 0.2. No fevers. Hemodynamically otherwise stable. She has been placed on fluids with some electrolyte replacement with improvement of her sodium from 122 -125, improvement of magnesium from 1.1-1.8. Her calcium continues to be significantly low at 5.0 from 5.3 on presentation, supplementation has been ordered. Her LFTs on presentation revealed an elevated alk phos in the 300s and a total bilirubin of 3.8 from 1.8 a few weeks ago. Of note, she also developed atrial fibrillation, cardiology consulted. Has a history of smoking 1 PPD X 20 years, quit 1984. No alcohol. Review of Systems All systems: negative Constitutional: Reports as per HPI Past Medical History Past Medical History: Asthma, Cancer, Diabetes Mellitus, GERD/Reflux, Hyperlipidemia, Hypertension, Skin Disorder, Thyroid Disorder Additional Past Medical History / Comment(s): LEFT SIDE LUNG ADENOCARCINOMA STAGE IV WITH WIDE SPREAD METASTATIC DISEASE, IRON DEFICIENCY ANEMIA (HX OF IRON TRANSFUSION), HX OF BLEEDING ULER (30 YRS AGO), NIDDM TYPE II, HX OF FATTY LIVER, THYROID CANCER 2000 WITH SURGERY & IODINE, BACK PAIN AND PAIN IN HER LEGS, UTI, YEAST INFECTION UNDER BREAST History of Any Multi-Drug Resistant Organisms: None Reported Past Surgical History: Adenoidectomy, Section, Hysterectomy, Orthopedic Surgery, Tonsillectomy Additional Past Surgical History / Comment(s): 05/26/18 port a cath insertion, thyroidectomy, arthroscopy left knee, colonoscopy, egd. Past Anesthesia/Blood Transfusion Reactions: Motion Sickness Smoking Status: Former smoker - Past Family History Brother(s) Family Medical History: Cancer Additional Family Medical History / Comment(s): multiple myeloma Mother Family Medical History: Cancer Additional Family Medical History / Comment(s): malignant brain tumor Father Family Medical History: Cancer Additional Family Medical History / Comment(s): lung cancer Medications and Allergies Home Medications Medication Instructions Recorded Confirmed Type Atorvastatin [Lipitor] 10 mg PO HS 01/01/18 07/07/18 History Levothyroxine Sodium [Synthroid] 75 mcg PO DAILY 01/01/18 07/07/18 History Losartan Potassium [Cozaar] 50 mg PO DAILY 01/01/18 07/07/18 History amLODIPine [Norvasc] 5 mg PO DAILY 01/01/18 07/07/18 History metFORMIN HCL [Glucophage] 1,000 mg PO AC-BRKFST 01/01/18 07/07/18 History metFORMIN HCL [Glucophage] 500 mg PO AC-SUPPER 01/01/18 07/07/18 History Albuterol Inhaler [Ventolin Hfa 1 - 2 puff INHALATION Q6HR PRN 05/23/18 History Inhaler] DULoxetine HCL [Cymbalta] 30 mg PO DAILY 06/11/18 07/07/18 History Dronabinol 5 mg PO DAILY 06/11/18 07/07/18 History HYDROcodone/APAP 5-325MG [[place] 1 tab PO Q6HR PRN 06/11/18 07/07/18 History 5-325] Ondansetron [Zofran ODT] 4 mg PO Q8H PRN 06/11/18 07/07/18 History traMADol HCL [Ultram] 50 mg PO Q6HR PRN 06/11/18 07/07/18 History Baclofen [Lioresal] 5 mg PO TID #60 tab 06/13/18 07/07/18 Rx Metoclopramide [Reglan] 5 mg PO AC-TID PRN #30 tab 06/13/18 07/07/18 Rx Naproxen [Naprosyn] 250 mg PO TID #60 tab 06/13/18 07/07/18 Rx Ranitidine HCl [Zantac] 150 mg PO BID #60 tablet 06/13/18 07/07/18 Rx Scopolamine 1.5MG/72Hr Patch 1 patch TRANSDERM Q72H 06/27/18 07/07/18 History [TransDerm Scop] Acetaminophen/Diphenhydramine 2 tab PO HS 07/07/18 07/07/18 History [Tylenol PM 500-25mg] Folic Acid 0.4 mg PO DAILY 07/07/18 07/07/18 History Allergies Allergy/AdvReac Type Severity Reaction Status Date / Time opioids Allergy Nausea, Uncoded 07/07/18 11:03 shaky steroids AdvReac Nausea & Uncoded 07/07/18 11:03 Vomiting Physical Exam Vitals: Vital Signs Temp Pulse Pulse Resp BP BP Pulse Ox 07/08/18 08:20 91 16 07/08/18 05:00 97.6 F 91 16 119/93 95 07/08/18 02:20 89 07/08/18 01:57 147 H 07/08/18 01:56 20 94 L 07/08/18 01:53 147 H 20 144/87 91 L 07/07/18 21:00 96.9 F L 90 17 105/58 94 L 07/07/18 16:35 97.8 F 86 18 108/64 94 L 07/07/18 16:11 98.7 F 88 18 119/61 95 07/07/18 16:00 88 20 111/62 92 L 07/07/18 15:30 84 21 113/64 93 L 07/07/18 14:30 20 121/71 93 L 07/07/18 14:00 18 107/61 95 07/07/18 13:30 82 18 110/68 91 L 07/07/18 13:00 88 18 101/58 92 L 07/07/18 12:30 79 18 102/60 95 Intake and Output 07/07/18 07/08/1807/08/18 22:59 06:59 14:59 Intake Total 150 1125 Balance 150 1125 Intake: Intake, IV Titration 1125 Amount Sodium Chloride 0.9% 1, 1125 000 ml @ 125 mls/hr IV . Q8H [facility] Rx#:[id number] Oral 150 Other: Voiding Method Toilet Toilet Diaper Diaper Incontinent Incontinent # Voids 1 1 General: In no acute distress. Sleeping, arousable. HEENT: Mucosa dry. Neck: Neck supple. Lymph: No cervical/supraclavicular LAD. Lungs: CTA-B without wheezing or rhonchi. Heart: RRR. No LE edema. Abdomen: Soft, nontender, nondistended, with positive bowel sounds. MSK: 4/4 strength in all 4 extremities. Neuro: Alert and oriented 3. No obvious gross neurologic deficits. Skin: No jaundice or rash. Psych: Appropriate affect. Results CBC & Chem 7: 07/08/18 06:30 07/08/18 06:30 Labs: Abnormal Lab Results - Last 24 Hours (Table) 07/07/18 07/07/18 07/07/18 Range/Units 11:37 11:37 13:25 WBC 0.2 L* (3.8-10.6) k/uL RBC 3.08 L (3.80-5.40) m/uL Hgb 9.1 L D (11.4-16.0) gm/dL Hct 25.7 L (34.0-46.0) % Plt Count 82 L D (150-450) k/uL Sodium 122 L (137-145) mmol/L Chloride 87 L (98-107) mmol/L Carbon Dioxide 19 L (22-30) mmol/L BUN 19 H (7-17) mg/dL Glucose 101 H (74-99) mg/dL POC Glucose (mg/dL) (75-99) mg/dL Calcium 5.3 L* (8.4-10.2) mg/dL Ionized Calcium Evans 2.9 L* (4.5-5.3) mg/dL Magnesium 1.1 L (1.6-2.3) mg/dL Total Bilirubin 3.8 H (0.2-1.3) mg/dL AST 40 H (14-36) U/L Alkaline Phosphatase 352 H (38-126) U/L Total Protein 4.8 L (6.3-8.2) g/dL Albumin 2.3 L (3.5-5.0) g/dL 07/07/18 07/07/18 07/08/18 Range/Units 17:04 19:55 06:30 WBC 0.2 L* (3.8-10.6) k/uL RBC 3.07 L (3.80-5.40) m/uL Hgb 9.0 L (11.4-16.0) gm/dL Hct 26.7 L (34.0-46.0) % Plt Count 39 L D (150-450) k/uL Sodium (137-145) mmol/L Chloride (98-107) mmol/L Carbon Dioxide (22-30) mmol/L BUN (7-17) mg/dL Glucose (74-99) mg/dL POC Glucose (mg/dL) 110 H 109 H (75-99) mg/dL Calcium (8.4-10.2) mg/dL Ionized Calcium Evans (4.5-5.3) mg/dL Magnesium (1.6-2.3) mg/dL Total Bilirubin (0.2-1.3) mg/dL AST (14-36) U/L Alkaline Phosphatase (38-126) U/L Total Protein (6.3-8.2) g/dL Albumin (3.5-5.0) g/dL 07/08/18 07/08/18 Range/Units 06:30 07:07 WBC (3.8-10.6) k/uL RBC (3.80-5.40) m/uL Hgb (11.4-16.0) gm/dL Hct (34.0-46.0) % Plt Count (150-450) k/uL Sodium 125 L (137-145) mmol/L Chloride 95 L (98-107) mmol/L Carbon Dioxide 15 L (22-30) mmol/L BUN (7-17) mg/dL Glucose 111 H (74-99) mg/dL POC Glucose (mg/dL) 124 H (75-99) mg/dL Calcium 5.0 L* (8.4-10.2) mg/dL Ionized Calcium Evans (4.5-5.3) mg/dL Magnesium (1.6-2.3) mg/dL Total Bilirubin (0.2-1.3) mg/dL AST (14-36) U/L Alkaline Phosphatase (38-126) U/L Total Protein (6.3-8.2) g/dL Albumin (3.5-5.0) g/dL Assessment and Plan Assessment: 1. Pancytopenia, due to chemotherapy 2. Electrolyte derangement, due to chemotherapy and vomiting 3. Hyperbilirubinemia 4. Atrial fibrillation 5. Intractable nausea and vomiting, due to chemotherapy 6. Generalized weakness 7. Metastatic lung cancer on chemotherapy 8. Diabetes 9. HLP 10. GERD/PUD 11. HTN 12. COPD Plan: Ms. Fraga is a very pleasant 77-year-old female with multiple comorbidities as listed above including metastatic lung cancer, recently diagnosed, status post palliative RT to the femur and L-spine, followed by cycle 1 of carbo Alimta on 06/30/18, here for intractable nausea, vomiting, and generalized weakness. Found to have pancytopenia including severe neutropenia with a WBC of 0.2, afebrile, platelet in the 30s, hemoglobin 9, and electrolyte derangements including sodium of 122, magnesium 1.1, total calcium of 5.3 with ionized calcium 2.9. She has been on hydration and antiemetics with improvement of her sodium to 125 and magnesium to 1.8 however continues to be severely hypocalcemic at 5.0. Total bilirubin also increased at 3.8. Creatinine normal 0.58. Developed paroxysmal atrial fibrillation. She has experienced significant toxicity for her chemotherapy. For now supportive care with fluids, aggressive electrolyte replacement, aggressive antiemetics. Supportive transfusion for Hgb <7.5 or symptomatic anemia, and plt <15 or bleeding. If able to hold off on antioagualtion for now, prefer to hold this until plt >50. She should be at her mulu in terms of pancytopenia. Will give a dose of G-CSF due to her acute illness, although anticipate neutropenia to start to recover soon. Would also repeat LFT's in am and if bilirubin continues to be elevated, would obtain abdominal US. Calcium replacement ordered. Discussed with nursing staff and primary team. Discussed with the patient and family and they are agreeable to the plan. All of her questions were answered.
[2018-07-08] MEDS ORDERED: CALCIUM GLUCONATE 1,000 MG in SODIUM CHLORIDE 0.9% 100 ML IVPB ONE ×2 (14:00→18:00)
[2018-07-08] MEDS ORDERED: SCOPOLAMINE 1.5MG/72HR PATCH TRANSDERM SCH (14:15)
[2018-07-08 14:21] VITALS: BMI 34.2
[2018-07-08 14:25] LABS: Platelet Count 39 k/uL (150-450)
[2018-07-08] MEDS: FILGRASTIM-SNDZ 300 MCG/0.5 ML SYRINGE SQ SCH (15:01)
[2018-07-08 15:25] LABS: HCT 28.8 % (34.0-46.0); HGB 9.5 gm/dL (11.4-16.0); MCH 29.4 pg (25.0-35.0); RBC 3.24 m/uL (3.80-5.40)
[2018-07-08 15:31] LABS: Platelet Count 31 k/uL (150-450); WBC 0.1 k/uL (3.8-10.6)
[2018-07-08 16:01] LABS: ALT 33 U/L (9-52); AST 20 U/L (14-36); Alkaline Phosphatase 239 U/L (38-126); Anion Gap 15 mmol/L; Blood Urea Nitrogen 15 mg/dL (7-17); Carbon Dioxide 15 mmol/L (22-30); Chloride 97 mmol/L (98-107); Glucose 114 mg/dL (74-99); Potassium 3.6 mmol/L (3.5-5.1); Sodium 127 mmol/L (137-145); Total Protein 4.4 g/dL (6.3-8.2)
[2018-07-08 16:16] LABS: Calcium 5.4 mg/dL (8.4-10.2)
[2018-07-08 17:41] LABS: Glucose,Whole Blood 121 mg/dL (75-99)
[2018-07-08 20:17] LABS: Glucose,Whole Blood 115 mg/dL (75-99)
--- NOTE | 2018-07-08 23:30 | PN ---
PROGRESS NOTE DATE OF SERVICE: 07/08/2018 PRESENTING COMPLAINT: Nausea, vomiting diarrhea. INTERVAL HISTORY: This is a patient with stage IV metastatic lung cancer with mets to the left femur and lumbar region. Got chemotherapy a week ago. The patient presented with severe nausea, vomiting, diarrhea, and severe dyselectrolytemia. This morning nausea and vomiting is better, extremely exhausted, tired. Magnesium and calcium are being supplemented. The patient's family at the bedside. The patient on a liquid diet. Diarrhea settled down. REVIEW OF SYSTEMS: Done for constitutional, cardiovascular, GI, pulmonary; relevant findings as above. CURRENT MEDICATIONS: Reviewed that include calcium supplement, Zarxio, Reglan for nausea, Protonix, scopolamine patch for nausea, IV fluids. PHYSICAL EXAMINATION: Temperature 97.6, pulse 91, respirations 16, blood pressure 109/93, pulse ox 95 percent on room air. GENERAL APPEARANCE: Lying in bed, tired-appearing but arousable. EYES: Pupils equal. Conjunctivae pale. NECK: JVD not raised. Mass not palpable. Respiratory effort normal. LUNGS: Decreased breath sounds. CARDIOVASCULAR: First and second sounds. No edema. ABDOMEN: Soft, nontender. Liver and spleen not palpable. LYMPHATICS: No lymph node in neck or axilla. PSYCHIATRY: Tired but able to answer simple questions. INVESTIGATIONS: White count 0.1, hemoglobin 9.5, platelets 31. Sodium 125, potassium 3.9, bicarb 15, calcium 5, magnesium 1.8. ASSESSMENT: 1. Severe nausea, vomiting, diarrhea as a side effect of chemotherapy. 2. Pancytopenia with severe neutropenia as side effect of chemotherapy, started on filgrastim. 3. Hyponatremia and hypotension from poor oral intake. 4. Acute metabolic acidosis from severe volume loss and diarrhea. 5. Severe hypocalcemia with low ionized calcium. 6. Hypomagnesemia, improving. 7. Hyperbilirubinemia. 8. Hypoalbuminemia as an acute phase reactant. 9. Stage IV lung cancer with metastatic disease to the femur with multiple masses. 10.Diabetes mellitus type 2 on oral hypoglycemic. 11.Hyperlipidemia. 12.Essential hypertension. 13.Chronic obstructive pulmonary disease in an ex-smoker. 14.Gastroesophageal reflux disease. 15.Hypothyroid. 16.Fatty liver. PLAN: Discussed with the patient family at the bedside. Also discussed with Dr. Khoulani from Oncology. More Calcium is being given. Magnesium has got better. IV fluids to continue. Patient to remain on a liquid diet and advance as tolerated. Follow electrolytes closely. The patient remains rather sick currently. MMODL / IJN: [id number] /
[2018-07-09] MEDS: ALPRAZolam 0.5 MG TAB PO PRN (00:15)
[2018-07-09] MEDS: SODIUM CHLORIDE 0.9% 1,000 ML IV SCH ×2 (03:26→05:13)
[2018-07-09] MEDS: METOCLOPRAMIDE 5 MG/ML 2 ML VIAL IVP SCH ×3 (05:13→21:16)
[2018-07-09] MEDS ORDERED: ALPRAZolam 0.25 MG TAB PO PRN (08:01)
--- NOTE | 2018-07-09 08:29 | XR ---
EXAMINATION TYPE: XR chest 1V portable DATE OF EXAM: 07/09/2018 CLINICAL HISTORY: Difficulty breathing progress study. TECHNIQUE: Single AP portable upright view of the chest is obtained. COMPARISON: Chest x-ray from [address] chest May 21, 2018. PET/CT May 24, 2018. FINDINGS: There is stable right internal jugular Mediport catheter. There is stable mild cardiomegal y with atherosclerotic thoracic aorta. There is chronic retrocardiac opacity. Right lung is clear. So me new central vascular congestion is present. Osseous structures remain demineralized. IMPRESSION: There is persisting cardiomegaly with left basilar opacity correlating with obstructing m ass or neoplasm and associated basilar atelectasis and/or infiltrate and and probable tiny left pleur al effusion. New mild central vascular congestion is felt present. Correlate for fluid overload state .
--- NOTE | 2018-07-09 08:45 | CT ---
EXAMINATION TYPE: CT brain wo con DATE OF EXAM: 07/09/2018 HISTORY: Increased confusion. Newly diagnosed lung cancer. CT DLP: 1010.3 mGycm. Automated Exposure Control for Dose Reduction was Utilized. TECHNIQUE: CT scan of the head is performed without contrast. COMPARISON: None. FINDINGS: There is no acute intracranial hemorrhage or midline shift identified. There is diffuse v entricular and sulcal prominence consistent with diffuse age-related cerebral atrophy. There is low- attenuation in the deep and periventricular white matter most likely on basis of product of chronic s mall vessel ischemic change in patient this age. The globes are intact and the visualized sinuses ar e clear. IMPRESSION: No acute intracranial hemorrhage or midline shift. There is mild to moderate diffuse ag e-related cerebral atrophy and moderate to severe nonspecific white matter changes most likely on bas is of product of chronic small vessel ischemic change noted.
--- NOTE | 2018-07-09 08:51 | CT ---
EXAMINATION TYPE: CT abdomen pelvis wo con DATE OF EXAM: 07/09/2018 COMPARISON: 05/21/2018 HISTORY: Diarrhea. CT DLP: 1138.4 mGycm Examination of the solid and hollow viscera is limited given the lack of contrast. FINDINGS: LUNG BASES: Again noted is partially imaged left lower lobe collapse with endobronchial lesion or muc ous. LIVER/GB: There is evidence of gallbladder hydrops without calcified cholelithiasis. Gallbladder valentine ures 11.6 cm in length. Ill-defined area of decreased attenuation adjacent to the falciform ligament may reflect underlying lesion. Lack of contrast limits evaluation. Additional area of decreased atten uation anterior segment right hepatic lobe measures 1.3 cm. Additional lesion is difficult to exclude . PANCREAS: No pancreatic mass identified. No inflammatory process seen. SPLEEN: No evidence for splenomegaly. No intrasplenic lesions seen. ADRENALS: No adrenal nodules identified. No evidence for thickening. KIDNEYS: Stable nonspecific renal lesions. No nephrolithiasis. No hydronephrosis. BOWEL: Wall thickening involving the colon extending from the mid transverse colon through the sigmoi d colon compatible with nonspecific colitis. Differential diagnostic possibilities include infectious , inflammatory as well as ischemic causes. There is distention of small bowel with air-fluid levels n oted likely on the basis of ileus. Lymph nodes: No evidence for adenopathy greater than 1 cm. Abdominal aorta: Atheromatous changes seen. No evidence for aneurysm. Genital organs: No significant abnormality. Other: Low anterior abdominal wall fat-containing hernia to the left of midline. IMPRESSION: 1. Nonspecific colitis. 2. Small bowel ileus. 3. Left lower lobe collapse as seen previously. Suspect endobronchial lesion. 4. Nonspecific hepatic areas of decreased attenuation may reflect hepatic lesions. Consider further e valuation with ultrasound.
[2018-07-09 09:33] LABS: Glucose,Whole Blood 101 mg/dL (75-99)
[2018-07-09] MEDS ORDERED: DILTIAZEM DRIP BOLUS FROM BAG 1 MG SOLN IV ONE (09:57)
[2018-07-09 10:15] LABS: ALT 37 U/L (9-52); AST 26 U/L (14-36); Albumin 1.9 g/dL (3.5-5.0); Alkaline Phosphatase 234 U/L (38-126); Anion Gap 14 mmol/L; Blood Urea Nitrogen 21 mg/dL (7-17); Carbon Dioxide 13 mmol/L (22-30); Chloride 103 mmol/L (98-107); Glucose 96 mg/dL (74-99); Potassium 3.6 mmol/L (3.5-5.1); Sodium 130 mmol/L (137-145); Total Bilirubin 2.8 mg/dL (0.2-1.3); Total Protein 4.2 g/dL (6.3-8.2)
[2018-07-09] MEDS: DILTIAZEM 50 MG in SODIUM CHLORIDE 0.9% 40 ML IV SCH ×4 (10:18→22:33)
[2018-07-09 10:24] LABS: Creatine Kinase MB 0.3 ng/mL (0.0-2.4); Troponin I <0.012 ng/mL (0.000-0.034)
[2018-07-09 10:31] LABS: HCT 28.2 % (34.0-46.0); HGB 9.4 gm/dL (11.4-16.0); MCH 29.1 pg (25.0-35.0); MCHC 33.4 g/dL (31.0-37.0); MCV 87.1 fL (80.0-100.0); Mean Platelet Volume 8.9; RBC 3.23 m/uL (3.80-5.40); RDW 15.3 % (11.5-15.5)
[2018-07-09 10:41] LABS: Calcium 5.5 mg/dL (8.4-10.2)
[2018-07-09 10:46] LABS: WBC 0.1 k/uL (3.8-10.6)
[2018-07-09 11:01] LABS: Platelet Count 14 k/uL (150-450)
[2018-07-09] MEDS: DEXTROSE 5%-0.9% NACL 1,000 ML IV SCH ×2 (11:24→21:19)
[2018-07-09 11:45] LABS: Poikilocytosis (M) Present
--- NOTE | 2018-07-09 12:34 | CONS ---
CONSULTATION This is a pulmonary critical care consultation dated 07/09/2018. DATE OF SERVICE: 07/09/2018 This is a 77-year-old female who presented to the emergency department on July 07. The patient apparently came in with nausea, vomiting, and diarrhea. She was seen by Dr. Clayton in the emergency room. She has a history of multiple medical problems, but most notably has a history of metastatic lung cancer. Anyway, this patient apparently has a 7-day history of nausea and vomiting. She started chemo just recently about 7 days prior to admission. Her primary oncologist is Dr. Deonte Miranda. Anyway, the patient had been having apparently severe nausea, vomiting, and diarrhea after the chemo started. Because her symptoms worsened, she came into the emergency room to be evaluated. This morning, there was a rapid response team called to her bedside. She was in room 337. She apparently developed sudden atrial fibrillation with RVR. I had a long discussion with the son and the . She is a DO NOT RESUSCITATE. We did think that the patient should be moved to the cardiac floor for better monitoring. Cardiology was consulted and she was started on a Cardizem drip for the atrial fibrillation/RVR. Her mental status has been very poor according to the nurse. Even yesterday, she had very limited mental status and was very lethargic and sleepy. This apparently has actually even gotten worse. HOME MEDICATIONS: Include Lipitor, levothyroxine, losartan, amlodipine, metformin, albuterol inhaler, Symbicort, dronabinol, which is synthetic marijuana, [place], Zofran, Ultram, scopolamine patch, Tylenol, folic acid. Other medications listed here include Lioresal, which is baclofen, Reglan, Naprosyn and Zantac. ALLERGIES: TO OPIOIDS AND STEROIDS. MEDICAL HISTORY: Is positive for advanced lung cancer/stage 4, hyperlipidemia, hypothyroidism, hypertension, diabetes, gastroesophageal reflux disease, asthma, iron deficiency anemia, bleeding ulcer, fatty liver, thyroid cancer. Her lung cancer is metastatic to her bones. SURGICAL HISTORY: Includes among other things, orthopedic procedures, tonsillectomy, adenoidectomy, C- section, hysterectomy. She has also had thyroidectomy and colonoscopy as well as EGD. SOCIAL HISTORY: Positive for previous tobacco use. No alcohol or drug use. FAMILY HISTORY: Positive for multiple myeloma related to brain tumor and lung cancer. REVIEW OF SYSTEMS: Could not be obtained from this patient. She is very lethargic and sleepy. PHYSICAL EXAMINATION: Current vital signs include a temperature which is 98, heart rate up to 154 and irregular, respiratory rate 18, blood pressure 120/62, mean 74 and a 4 L saturation between 93 and 94%. The patient is lethargic. Responds poorly. Does open her eyes. HEENT examination is grossly unremarkable. NECK: Supple. Full range of motion. Cardiovascular examination reveals a regular rhythm and rate. Heart rate 125. She is clearly in atrial fibrillation. LUNGS: Some coarse rhonchi. She does not take deep breaths. Breath sounds equal bilaterally. A few scattered crackles. ABDOMEN: Soft, but distended. No bowel sounds are noted. Extremities are intact. No cyanosis, clubbing, or edema. Skin without rash. Neurologic examination is difficult to assess. LABS: Reviewed. Her white count only 0.1, hemoglobin 9.4, hematocrit 28.2, platelet count 31,000. Sodium 130, potassium 3.6, chloride is 103, CO2 13, anion gap is 14, BUN and creatinine were 21 and 0.72. Calcium is 5.5. Her albumin is only at 1.9. Her total protein is 4.2. N terminal proBNP 7820. The rest of her labs are reviewed. The patient had a chest x-ray dated July 09. This shows some cardiomegaly and left basilar opacity consistent with the obstructing mass or neoplasm. There is some associated atelectasis and/or infiltrate. There is a small effusion. There may be some mild fluid overload as well. Brain CT did not show anything acute and a CT scan of the abdomen and pelvis showed nonspecific colitis, small bowel ileus with left lower lobe collapse and decreased attenuation in the liver consistent with possible hepatic lesions. Medications are currently reviewed. She is getting tramadol, scopolamine patch, Zosyn, Protonix, Narcan, Reglan, Filgrastim, Cardizem IV, calcium gluconate, Xanax, and Tylenol. Microbiology is negative thus far. ASSESSMENT: 1. Atrial fibrillation with rapid ventricular response and a fluid overload. 2. Stage IV lung cancer, with METS to the left femur and lumbar region and ongoing radiation treatments and recent chemotherapy. 3. Pancytopenia likely from chemotherapy. 4. Anion gap metabolic acidosis. 5. Hypocalcemia. 6. History of hyperlipidemia. 7. History of hypothyroidism. 8. History of hypertension. 9. History of diabetes mellitus. 10.History of chronic bronchial asthma. 11.Multiple other medical problems and comorbidities include including thyroid cancer. PLAN: The patient's overall prognosis is very poor. She was moved to the third floor for closer monitoring. She was placed on a Cardizem drip by Cardiology. I did have a long conversation with the and son. They agree to medical management, but nothing heroic or extraordinary and certainly nothing like intubation and mechanical ventilation. The patient's overall prognosis is very poor. We will continue to follow. There is a number of active issues including the pancytopenia, the severe nausea, vomiting and diarrhea, the atrial fibrillation with RVR, possible left lower lobe pneumonia/postobstructive pneumonia, metastatic lung cancer, and a multitude of other issues. Additional recommendations and suggestions are forthcoming. MMRONALDOL / CHRISN: [id number] /
--- NOTE | 2018-07-09 12:43 | P.PN ---
Subjective On-call hospitalist covering for Dr. Mayo starting 07/09/2018 through 2018 This is a pleasant 77 years old female with past medical history of stage IV lung cancer with bone metastasis and history of GERD and peptic ulcer disease who presents This time patient with gastroenterocolitis-like picture with nausea vomiting and loose bowel movement, mostly secondary to chemotherapy. And pancytopenia on filgstram, mostly related with chemotherapy severe electrolyte abnormality including hypocalcemia and hyponatremia. Patient has been placed on IV fluids. And has been followed up by cardiology for A. fib and RVR. Today patient is more confused and she open her eyes spontaneously for short time and then she goes back to sleep. She does not answer questions or follow commands. And on exam was noticed that she has some right-sided abdominal tenderness and she was noticed to be a little bit tachypneic. She had negative CT of the brain for acute event, repeat the chest x-ray: Left lung collapse with possible obstructing mass, associated atelectasis and/or infiltrate and possible tiny left pleural effusion with possible some vascular congestion, her IV fluid is lowered from 125 to 50 mL/h. Also she had CT of the abdomen: Nonspecific colitis with small bowel ileus, possible hepatic lesion. Patient also developed A. fib with RVR with heart rate went up to 170, and this converted to sinus rhythm with Cardizem drip. Review of systems: None applicable Medication with dosages were reviewed and include: Tylenol, Xanax, D5 normal saline. Cardizem, filgrastim, Reglan, Protonix, Zosyn, scopolamine, Ultram. Objective - Vital Signs Vital signs: Vital Signs Temp 98.1 F 07/09/18 12:11 Pulse 93 07/09/18 12:11 Resp 18 07/09/18 12:11 BP 116/58 07/09/18 12:11 Pulse Ox 93 L 07/09/18 12:11 Intake & Output 07/08/18 07/09/18 07/09/18 18:59 06:59 18:59 Intake Total 1775 Balance 1775 Weight 79.379 kg Intake: Intake, IV Titration 1175 Amount Sodium Chloride 0.9% 1, 1175 000 ml @ 125 mls/hr IV . Q8H [facility] Rx#:[id number] Oral 600 Other: Voiding Method Toilet Toilet Diaper Diaper Incontinent Incontinent # Voids 2 2 - Exam -GENERAL: The patient is alert and oriented x0, drowsy and go back to sleep easily. Does not follow command or answer questions HEENT: Pupils are round and equally reacting to light. EOMI. No scleral icterus. No conjunctival pallor. Normocephalic, atraumatic. No pharyngeal erythema. No thyromegaly. CARDIOVASCULAR: S1 and S2 present. No murmurs, rubs, or gallops. -PULMONARY: Chest is clear to auscultation, no wheezing or crackles. Patient is to keep think -ABDOMEN: Soft, outside the abdominal tenderness with no rebound tenderness or guarding. nondistended, normoactive bowel sounds. No palpable organomegaly. MUSCULOSKELETAL: No joint swelling or deformity. EXTREMITIES: No cyanosis, clubbing, or pedal edema. NEUROLOGICAL: Gross neurological examination did not reveal any focal deficits. SKIN: No rashes. - Labs CBC & Chem 7: 07/09/18 09:38 07/09/18 09:38 Labs: Abnormal Lab Results - Last 24 Hours (Table) 07/08/18 07/08/18 07/08/18 Range/Units 06:30 15:08 15:08 WBC 0.1 L* (3.8-10.6) k/uL RBC 3.24 L (3.80-5.40) m/uL Hgb 9.5 L (11.4-16.0) gm/dL Hct 28.8 L (34.0-46.0) % Plt Count 39 L D 31 L (150-450) k/uL Sodium 127 L (137-145) mmol/L Chloride 97 L (98-107) mmol/L Carbon Dioxide 15 L (22-30) mmol/L BUN (7-17) mg/dL Creatinine 0.49 L (0.52-1.04) mg/dL Glucose 114 H (74-99) mg/dL POC Glucose (mg/dL) (75-99) mg/dL Calcium 5.4 L* (8.4-10.2) mg/dL Total Bilirubin 3.0 H (0.2-1.3) mg/dL Alkaline Phosphatase 239 H (38-126) U/L Total Protein 4.4 L (6.3-8.2) g/dL Albumin 2.0 L (3.5-5.0) g/dL 07/08/18 07/08/18 07/09/18 Range/Units 17:40 20:16 09:31 WBC (3.8-10.6) k/uL RBC (3.80-5.40) m/uL Hgb (11.4-16.0) gm/dL Hct (34.0-46.0) % Plt Count (150-450) k/uL Sodium (137-145) mmol/L Chloride (98-107) mmol/L Carbon Dioxide (22-30) mmol/L BUN (7-17) mg/dL Creatinine (0.52-1.04) mg/dL Glucose (74-99) mg/dL POC Glucose (mg/dL) 121 H 115 H 101 H (75-99) mg/dL Calcium (8.4-10.2) mg/dL Total Bilirubin (0.2-1.3) mg/dL Alkaline Phosphatase (38-126) U/L Total Protein (6.3-8.2) g/dL Albumin (3.5-5.0) g/dL 07/09/18 07/09/18 Range/Units 09:38 09:38 WBC 0.1 L* (3.8-10.6) k/uL RBC 3.23 L (3.80-5.40) m/uL Hgb 9.4 L (11.4-16.0) gm/dL Hct 28.2 L (34.0-46.0) % Plt Count 14 L* D (150-450) k/uL Sodium 130 L (137-145) mmol/L Chloride (98-107) mmol/L Carbon Dioxide 13 L (22-30) mmol/L BUN 21 H (7-17) mg/dL Creatinine (0.52-1.04) mg/dL Glucose (74-99) mg/dL POC Glucose (mg/dL) (75-99) mg/dL Calcium 5.5 L* (8.4-10.2) mg/dL Total Bilirubin 2.8 H (0.2-1.3) mg/dL Alkaline Phosphatase 234 H (38-126) U/L Total Protein 4.2 L (6.3-8.2) g/dL Albumin 1.9 L (3.5-5.0) g/dL Assessment and Plan Assessment: Encephalopathy, multifactorial. A. fib with RVR Gastroenteritis-like picture, mostly secondary to chemotherapy. Stage IV lung cancer with bone metastasis. Severe electrolyte abnormalities including hyponatremia and hypocalcemia Hepatic lesions with elevated bilirubin, possible metastasis. We'll order ultrasound. Pancytopenia, Plan: This is a 77 years old female with stage IV lung cancer, presents with gastroenteritis-like picture is with severe electrolyte abnormality, hepatic lesion, and encephalopathy. Patient is being followed by hematology and cardiology team. Patient was on IV fluids and electrolytes replaced. Patient become more confused. Pulmonary/critical care unit has been contacted. I discussed the case with the at bedside and they change the CODE STATUS of the patient to a no code. Patient sent to nothing by mouth while she is remains confused. We'll order a liver ultrasound to evaluate for the liver lesion. Patient is on Zosyn. DVT and GI prophylaxis. Further recommendations based on the clinical course over the patient. DVT prophylaxis: No heparin in view of severe thrombocytopenia GI prophylaxis: Protonix Is very poor.
[2018-07-09] MEDS ORDERED: CALCIUM GLUCONATE 1,000 MG in SODIUM CHLORIDE 0.9% 100 ML IVPB ONE (13:00)
[2018-07-09] MEDS: PIPERACILLIN-TAZOBACTAM 3.375 GM in SODIUM CHLORIDE 0.9% 100 ML IVPB SCH ×2 (13:09→21:16)
[2018-07-09] MEDS: PANTOPRAZOLE 40 MG/10 ML VIAL IV SCH (13:09)
[2018-07-09] MEDS: FILGRASTIM-SNDZ 300 MCG/0.5 ML SYRINGE SQ SCH (14:25)
--- NOTE | 2018-07-09 15:46 | P.PN ---
Subjective Progress Note Date: 07/09/18 Principal diagnosis: electrolyte derangement Pt seen with son at bedside. Pt had episode of a-fib with RVR, A team called, pt moved to selective care, on cardizem drip, she is now in sinus rhythm. Pt is lethargic, does arouse a little to voice. Objective - Vital Signs Vital signs: Vital Signs Temp 98.1 F 07/09/18 12:11 Pulse 93 07/09/18 12:11 Resp 18 07/09/18 12:11 BP 116/58 07/09/18 12:11 Pulse Ox 93 L 07/09/18 12:11 Intake & Output 07/08/18 07/09/18 07/09/18 18:59 06:59 18:59 Intake Total 1775 315.333 Balance 1775 315.333 Weight 79.379 kg Intake: IV 30 Diltiazem 50 mg In Sodium 30 Chloride 0.9% 40 ml @ 10 MG/HR 10 mls/hr IV .Q5H [facility] Rx#:[id number] Intake, IV Titration 1175 285.333 Amount Dextrose 5%-0.9% NaCl 1, 150 000 ml @ 50 mls/hr IV . Q20H [facility] Rx#:[id number] Diltiazem 50 mg In Sodium 35.333 Chloride 0.9% 40 ml @ 10 MG/HR 10 mls/hr IV .Q5H [facility] Rx#:[id number] Piperacillin-Tazobactam 3 100 .375 gm In Sodium Chloride 0.9% 100 ml @ 25 mls/hr IVPB Q8H [facility] Rx#: [id number] Sodium Chloride 0.9% 1, 1175 000 ml @ 125 mls/hr IV . Q8H [facility] Rx#:[id number] Oral 600 Other: Voiding Method Toilet Toilet Diaper Diaper Incontinent Incontinent # Voids 2 2 - Constitutional General appearance: Present: average body habitus, mild distress - EENT EENT Comment(s): dry mucus membranes Eyes: Present: anicteric sclerae - Respiratory Respiratory: bilateral: CTA - Cardiovascular Rhythm: regular Heart sounds: normal: S1, S2 Abnormal Heart Sounds: Absent: systolic murmur, diastolic murmur, rub, S3 Gallop , S4 Gallop, click, other - Peripheral edema leg Peripheral Edema: bilateral: Trace - Gastrointestinal General gastrointestinal: Present: normal bowel sounds, soft - Integumentary Integumentary: Present: pale - Musculoskeletal Musculoskeletal: Present: generalized weakness - Psychiatric Psychiatric: Absent: A&O x's 3, appropriate affect - Labs CBC & Chem 7: 07/09/18 09:38 12 09:38 Labs: Abnormal Lab Results - Last 24 Hours (Table) 07/08/18 07/08/18 07/08/18 Range/Units 15:08 17:40 20:16 WBC (3.8-10.6) k/uL RBC (3.80-5.40) m/uL Hgb (11.4-16.0) gm/dL Hct (34.0-46.0) % Plt Count (150-450) k/uL Sodium 127 L (137-145) mmol/L Chloride 97 L (98-107) mmol/L Carbon Dioxide 15 L (22-30) mmol/L BUN (7-17) mg/dL Creatinine 0.49 L (0.52-1.04) mg/dL Glucose 114 H (74-99) mg/dL POC Glucose (mg/dL) 121 H 115 H (75-99) mg/dL Calcium 5.4 L* (8.4-10.2) mg/dL Total Bilirubin 3.0 H (0.2-1.3) mg/dL Alkaline Phosphatase 239 H (38-126) U/L Total Protein 4.4 L (6.3-8.2) g/dL Albumin 2.0 L (3.5-5.0) g/dL 07/09/18 07/09/18 07/09/18 Range/Units 09:31 09:38 09:38 WBC 0.1 L* (3.8-10.6) k/uL RBC 3.23 L (3.80-5.40) m/uL Hgb 9.4 L (11.4-16.0) gm/dL Hct 28.2 L (34.0-46.0) % Plt Count 14 L* D (150-450) k/uL Sodium 130 L (137-145) mmol/L Chloride (98-107) mmol/L Carbon Dioxide 13 L (22-30) mmol/L BUN 21 H (7-17) mg/dL Creatinine (0.52-1.04) mg/dL Glucose (74-99) mg/dL POC Glucose (mg/dL) 101 H (75-99) mg/dL Calcium 5.5 L* (8.4-10.2) mg/dL Total Bilirubin 2.8 H (0.2-1.3) mg/dL Alkaline Phosphatase 234 H (38-126) U/L Total Protein 4.2 L (6.3-8.2) g/dL Albumin 1.9 L (3.5-5.0) g/dL - Imaging and Cardiology CT scan - abdomen: report reviewed CT Scan - head: report reviewed CT scan - pelvis: report reviewed Assessment and Plan (1) Paroxysmal atrial fibrillation Narrative/Plan: Pt now on selective care. She has converted to normal sinus rhythm. Cardiac monitoring. Current Visit: Yes Status: Acute Priority: High Code(s): I48.0 - PAROXYSMAL ATRIAL FIBRILLATION SNOMED Code(s): 677981414 (2) Pancytopenia due to antineoplastic chemotherapy Narrative/Plan: Plt 14,000, no acute intervention today. NO ASA, NSAIDs, anticoagulation, ibuprofen or anti-platelet therapy WBC 0.1, cont GCSF Hgb 9.4, stable, no transfusion today CBC daily Current Visit: Yes Status: Acute Priority: High Code(s): D61.810 - ANTINEOPLASTIC CHEMOTHERAPY INDUCED PANCYTOPENIA; T45.1X5A - ADVERSE EFFECT OF ANTINEOPLASTIC AND IMMUNOSUP DRUGS, INIT SNOMED Code(s): 421956708058716 (3) Adenocarcinoma of lung, stage 4 Narrative/Plan: Pt had 1st cycle of carbo/alimta about 9 days ago. Her regimen will likely require adjustment in dose for tolerance. She will f/u with treating Oncologist prior to next cycle of treatment Current Visit: Yes Status: Acute Priority: Medium Code(s): C34.90 - MALIGNANT NEOPLASM OF UNSP PART OF UNSP BRONCHUS OR LUNG SNOMED Code(s): 290257808 (4) Electrolyte abnormality Narrative/Plan: Improving with supplementation Folic acid added to meds-to be taken on alimta therapy Current Visit: Yes Status: Acute Priority: High Code(s): E87.8 - OTH DISORDERS OF ELECTROLYTE AND FLUID BALANCE, NEC SNOMED Code(s): 986892047
[2018-07-09] MEDS ORDERED: SODIUM CHLORIDE 0.9% 500 ML 500 ML IV ONE (16:35)
[2018-07-09 22:24] VITALS: TEMP 98.8
[2018-07-10 00:35] VITALS: BP 105/50; PULSE 89; RESP 22
[2018-07-10] MEDS: METOCLOPRAMIDE 5 MG/ML 2 ML VIAL IVP SCH (06:36)
[2018-07-10] MEDS: PIPERACILLIN-TAZOBACTAM 3.375 GM in SODIUM CHLORIDE 0.9% 100 ML IVPB SCH (06:36)
[2018-07-10] MEDS: DILTIAZEM 50 MG in SODIUM CHLORIDE 0.9% 40 ML IV SCH (06:37)
--- NOTE | 2018-07-10 09:03 | ECHOF ---
Referral Reason:Chest pain and cardiomyopathy MEASUREMENTS -------- HEIGHT: 152.4 cm WEIGHT: 79.4 kg BP: RVIDd: 2.8 cm (< 3.3) IVSd: 1.2 cm (0.6 - 1.1) LVIDd: 4.5 cm (3.9 - 5.3) LVPWd: 1.2 cm (0.6 - 1.1) IVSs: 1.5 cm LVIDs: 3.6 cm LVPWs: 1.3 cm LA Diam: 2.1 cm (2.7 - 3.8) LAESV Index (A-L): 25.79 ml/m Ao Diam: 3.5 cm (2.0 - 3.7) AV Cusp: 1.9 cm (1.5 - 2.6) LA Diam: 2.8 cm (2.7 - 3.8) MV EXCURSION: 17.701 mm (> 18.000) MV EF SLOPE: 51 mm/s (70 - 150) EPSS: 0.6 cm MV E Armand: 0.49 m/s MV DecT: 237 ms MV A Armand: 0.73 m/s MV E/A Ratio: 0.68 RAP: 5.00 mmHg RVSP: 28.33 mmHg FINDINGS -------- Sinus rhythm. This was a technically adequate study. The left ventricular size is normal. Left ventricular wall thickness is normal. Overall left vent ricular systolic function is normal with, an EF between 60 - 65 %. The right ventricle is normal in size. The left atrial size is normal. The right atrial size is normal. There is mild aortic valve sclerosis. There is no evidence of aortic regurgitation. Mild mitral annular calcification present. Mild mitral regurgitation is present. Mild tricuspid regurgitation present. There is no evidence of pulmonary hypertension. The right v entricular systolic pressure, as measured by Doppler, is 28.33mmHg. There is no pulmonic regurgitation present. The aortic root size is normal. There is no pericardial effusion. CONCLUSIONS -------- 1. The left ventricular size is normal. 2. Left ventricular wall thickness is normal. 3. Overall left ventricular systolic function is normal with, an EF between 60 - 65 %. 4. The right ventricle is normal in size. 5. The left atrial size is normal. 6. The right atrial size is normal. 7. There is mild aortic valve sclerosis. 8. Mild mitral annular calcification present. 9. Mild mitral regurgitation is present. 10. Mild tricuspid regurgitation present. 11. There is no evidence of pulmonary hypertension. 12. The right ventricular systolic pressure, as measured by Doppler, is 28.33mmHg. 13. There is no pulmonic regurgitation present. 14. The aortic root size is normal. 15. There is no pericardial effusion. [employer]ER: Sondra Chowdary RDCS
--- NOTE | 2018-07-10 10:52 | US ---
EXAMINATION TYPE: US liver DATE OF EXAM: 07/09/2018 COMPARISON: NONE CLINICAL HISTORY: f/u, hepatic lesion and elevated bilirubin. EXAM MEASUREMENTS: Liver Length: 15.5 cm Gallbladder Wall: 0.3 cm CBD: 1.7 cm Right Kidney: 10.0 x 4.6 x 4.3 cm Inpatient done portable with large abdomen. Patient not responsive, unable to cooperate with examiner , at times pushing examiner away severely limiting exam. Pancreas: Mostly obscured by bowel gas, duct prominent. Liver: intrahepatic duct dilatation, somewhat heterogeneous, limited visualization, see above Gallbladder: hydropic Evidence for sonographic Caldera's sign: no CBD: dilated Right Kidney: wnl, as seen, limited views IMPRESSION: 1. Intrahepatic biliary ductal dilatation as well as dilatation of the common bile the gallbladder hy drops. 2. Heterogenous hepatic echotexture is nonspecific. Examination is limited. See above.
[2018-07-10] MEDS ORDERED: FOLIC ACID 1 MG TAB PO SCH (12:00)
--- NOTE | 2018-07-24 11:19 | P.DS ---
Providers Date of admission: 07/07/18 13:02 Attending physician: Stan Mayo Consults: 07/07/18 12:50 Consult Physician Routine Consulting Provider: Deonte Miranda Consult Reason/Comments: electrolyte derangment, chemotherapy Do you want consulting provider notified?: Yes 07/08/18 07:12 Consult Physician Routine Consulting Provider: Kemi Talley Consult Reason/Comments: had 45 minuted of a fib rvr then converted back to normal sinus rhythm Do you want consulting provider notified?: Yes, Notify in am 07/09/18 09:54 Consult Physician Urgent Consulting Provider: Andrew Patel Consult Reason/Comments: left lung collapse and confusion Do you want consulting provider notified?: Yes Primary care physician: [facility] Course: Diagnosis: Encephalopathy, multifactorial. A. fib with RVR Gastroenteritis-like picture, mostly secondary to chemotherapy. Stage IV lung cancer with bone metastasis. Severe electrolyte abnormalities including hyponatremia and hypocalcemia Hepatic lesions with elevated bilirubin, possible metastasis. Pancytopenia, his is a pleasant 77 years old female with past medical history of stage IV lung cancer with bone metastasis and history of GERD and peptic ulcer disease who presents This time patient with gastroenterocolitis-like picture with nausea vomiting and loose bowel movement, mostly secondary to chemotherapy. And pancytopenia on filgstram, mostly related with chemotherapy severe electrolyte abnormality including hypocalcemia and hyponatremia NA 122 on admission. Patient has been placed on IV fluids. And has been followed up by cardiology for A. fib and RVR. when i saw the pt for the first time she was already confused , lying in bed , at bed side, she open her eyes spontaneously for short time and then she goes back to sleep. She does not answer questions or follow commands. And on exam was noticed that she has some right-sided abdominal tenderness and she was noticed to be a little bit tachypneic. She had negative CT of the brain for acute event, repeat the chest x-ray: Left lung collapse with possible obstructing mass, associated atelectasis and/or infiltrate and possible tiny left pleural effusion with possible some vascular congestion, her IV fluid is lowered from 125 to 50 mL/h. Also she had CT of the abdomen: Nonspecific colitis with small bowel ileus, possible hepatic lesion. Patient also developed A. fib with RVR with heart rate went up to 170, and this converted to sinus rhythm with Cardizem drip. pt has been evaluated by pulmonary/critical care team ,the prognosis was very poor and they discussed the plan of care with the family and made pt DNR. 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 Patient Condition at Discharge: Fair Plan - Discharge Summary Discharge Rx Participant: No New Discharge Prescriptions: No Action Levothyroxine Sodium [Synthroid] 75 mcg PO DAILY metFORMIN HCL [Glucophage] 1,000 mg PO AC-BRKFST metFORMIN HCL [Glucophage] 500 mg PO AC-SUPPER amLODIPine [Norvasc] 5 mg PO DAILY Atorvastatin [Lipitor] 10 mg PO HS Losartan Potassium [Cozaar] 50 mg PO DAILY Albuterol Inhaler [Ventolin Hfa Inhaler] 1 - 2 puff INHALATION Q6HR PRN PRN Reason: Shortness Of Breath Dronabinol 5 mg PO DAILY traMADol HCL [Ultram] 50 mg PO Q6HR PRN PRN Reason: Pain HYDROcodone/APAP 5-325MG [[place] 5-325] 1 tab PO Q6HR PRN PRN Reason: Pain DULoxetine HCL [Cymbalta] 30 mg PO DAILY Ondansetron [Zofran ODT] 4 mg PO Q8H PRN PRN Reason: Nausea Baclofen [Lioresal] 5 mg PO TID #60 tab Metoclopramide [Reglan] 5 mg PO AC-TID PRN #30 tab PRN Reason: Nausea Naproxen [Naprosyn] 250 mg PO TID #60 tab Ranitidine HCl [Zantac] 150 mg PO BID #60 tablet Scopolamine 1.5MG/72Hr Patch [TransDerm Scop] 1 patch TRANSDERM Q72H Folic Acid 0.4 mg PO DAILY Acetaminophen/Diphenhydramine [Tylenol PM 500-25mg] 2 tab PO HS Discharge Medication List Atorvastatin [Lipitor] 10 mg PO HS 01/01/18 [History] Levothyroxine Sodium [Synthroid] 75 mcg PO DAILY 01/01/18 [History] Losartan Potassium [Cozaar] 50 mg PO DAILY 01/01/18 [History] amLODIPine [Norvasc] 5 mg PO DAILY 01/01/18 [History] metFORMIN HCL [Glucophage] 1,000 mg PO AC-BRKFST 01/01/18 [History] metFORMIN HCL [Glucophage] 500 mg PO AC-SUPPER 01/01/18 [History] Albuterol Inhaler [Ventolin Hfa Inhaler] 1 - 2 puff INHALATION Q6HR PRN [History] DULoxetine HCL [Cymbalta] 30 mg PO DAILY 06/11/18 [History] Dronabinol 5 mg PO DAILY 06/11/18 [History] HYDROcodone/APAP 5-325MG [[place] 5-325] 1 tab PO Q6HR PRN 06/11/18 [History] Ondansetron [Zofran ODT] 4 mg PO Q8H PRN 06/11/18 [History] traMADol HCL [Ultram] 50 mg PO Q6HR PRN 06/11/18 [History] Baclofen [Lioresal] 5 mg PO TID #60 tab 06/13/18 [Rx] Metoclopramide [Reglan] 5 mg PO AC-TID PRN #30 tab 06/13/18 [Rx] Naproxen [Naprosyn] 250 mg PO TID #60 tab 06/13/18 [Rx] Ranitidine HCl [Zantac] 150 mg PO BID #60 tablet 06/13/18 [Rx] Scopolamine 1.5MG/72Hr Patch [TransDerm Scop] 1 patch TRANSDERM Q72H 06/27/18 [ History] Acetaminophen/Diphenhydramine [Tylenol PM 500-25mg] 2 tab PO HS 07/07/18 [ History] Folic Acid 0.4 mg PO DAILY 07/07/18 [History] Follow up Appointment(s)/Referral(s): Kleber Munoz DO [Primary Care Provider] - 1-2 days Discharge Disposition: - Preliminary Cause of Preliminary Cause of : cardiopulmonary arrest
--- NOTE | 2018-07-28 15:19 | CDI ---
Date: 07/28/2018 3:00:46 PM From: Maura Coronel Email: Admit Date: 07/07/2018 1:02:00 PM Patient Name: Bonita Fraga Visit Number: [id number] Discharge Date: 07/10/2018 7:47:00 AM ATTENTION: The Clinical Documentation Specialists (CDI) and [facility] Coding Staff appreciate your assistance in clarifying documentation. Please respond to the clarification below the line at the bottom and electronically sign. The CDI & [facility] Coding staff will review the response and follow-up if needed. Please note: Queries are made part of the Legal Health Record. If you have any questions, please contact the author of this message via ITS. Dr. Stan Mayo Stage 4 lung cancer is documented in the H&P and progress notes. Patient history/risk factors: Lung cancer, s/p radiation and chemotherapy, metastatic disease to the left femur and lumbar region Clinical Indicators: fatigue, N/V/D, poor oral intake Radiology: CXR shows left basilar opacity correlating with obstructing mass or neoplasm and new mild central vascular congestion. CT of abdomen/pelvis shows LLL collapse with endobronchial lesion or mucus. Treatment: recent chemo, radiation therapy In your professional opinion, can you please specify the laterality and site of the neoplasm if known? Laterality Right Left Bilateral Other, please specify ____ Unable to determine Site Upper lobe Middle lobe Lower lobe MTDD
== END 2018-07-10 07:47 | disposition expired | DRG 393 ==
LOC: EC 10:50 → 3NMEDONC 13:02 → 3SCARD 07-09 10:39
PROVIDERS: ADMIT Hospitalist; ATTEND Hospitalist
DX: K52.1 Toxic gastroenteritis and colitis (principal); D61.810 Antineoplastic chemotherapy induced pancytopenia; E87.1 Hypo-osmolality and hyponatremia; E87.2 Acidosis; C79.51 Secondary malignant neoplasm of bone; C34.90 Malignant neoplasm of unspecified part of unspecified bronchus or lung; G93.40 Encephalopathy, unspecified; C78.7 Secondary malignant neoplasm of liver and intrahepatic bile duct; J98.19 Other pulmonary collapse; K56.7 Ileus, unspecified; I95.9 Hypotension, unspecified; J44.9 Chronic obstructive pulmonary disease, unspecified; E88.09 Other disorders of plasma-protein metabolism, not elsewhere classified; E87.70 Fluid overload, unspecified; I48.0 Paroxysmal atrial fibrillation; E83.51 Hypocalcemia; E83.42 Hypomagnesemia; Z66 Do not resuscitate; E86.0 Dehydration; E11.9 Type 2 diabetes mellitus without complications; B37.2 Candidiasis of skin and nail; F41.9 Anxiety disorder, unspecified; L98.9 Disorder of the skin and subcutaneous tissue, unspecified; K76.0 Fatty (change of) liver, not elsewhere classified; E89.0 Postprocedural hypothyroidism; T45.1X5A Adverse effect of antineoplastic and immunosuppressive drugs, initial encounter; E78.5 Hyperlipidemia, unspecified; I10 Essential (primary) hypertension; D50.9 Iron deficiency anemia, unspecified; M54.9 Dorsalgia, unspecified; R32 Unspecified urinary incontinence; K21.9 Gastro-esophageal reflux disease without esophagitis; Z87.11 Personal history of peptic ulcer disease; Z87.891 Personal history of nicotine dependence; Z90.710 Acquired absence of both cervix and uterus; Z85.850 Personal history of malignant neoplasm of thyroid; Z98.891 History of uterine scar from previous surgery; Z79.890 Hormone replacement therapy; Z79.84 Long term (current) use of oral hypoglycemic drugs; Z79.1 Long term (current) use of non-steroidal anti-inflammatories (NSAID); Z79.899 Other long term (current) drug therapy; Z88.5 Allergy status to narcotic agent; Z88.8 Allergy status to other drugs, medicaments and biological substances; Z80.7 Family history of other malignant neoplasms of lymphoid, hematopoietic and related tissues; Z80.1 Family history of malignant neoplasm of trachea, bronchus and lung; Z80.8 Family history of malignant neoplasm of other organs or systems; I46.9 Cardiac arrest, cause unspecified
CPT/HCPCS: 36415; 70450; 71045; 74176; 76705; 80048; 80053; 82330; 82550; 82553; 83605; 83735; 83880; 84484; 85025; 85027; 87040; 87077; 87086; 87150; 87186; 93005; 93306; 96361; 96365; 96367; 96375; 96376; 99285